=== PATIENT | female | born 1960 | race Caucasian/White ===

== ENCOUNTER 2016-06-21 18:50 | Emergency (ER) | payer MEDICAID ==
[2016-06-21 18:57] VITALS: BP 112/63
--- NOTE | 2016-06-21 19:04 | ER Document Report ---
ED Medical Screen (RME) - General Stated Complaint: FALL,HEAD AND HAND INJURY Time seen by provider: 19:04 Mode of Arrival: Ambulatory Information source: Patient Notes: 55-year-old female tripped on steps falling on concrete injuring the posterior occiput where she is a headache in injuring her dorsal right hand where it is swollen. She is having to headaches and dizziness since it occurred. I have consulted with the supervisory physician dr schmidt per [facility] Guidelines. I have greeted and performed a rapid initial assessment of this patient. A comprehensive ED assessment, evaluation of the patient, analysis of test results , and completion of the medical decision making process will be contacted by additional ED providers. TRAVEL OUTSIDE OF THE [place] IN LAST 30 DAYS: No - Related Data Allergies/Adverse Reactions: erythromycin base [Erythromycin Base] Allergy (Severe, Verified 09/17/15 08:39) Abd pain, Nausea tetracycline [Tetracycline] Allergy (Severe, Verified 09/17/15 08:39) Rash Penicillins Adverse Reaction (Unknown, Verified 09/17/15 08:39) ? childhood reaction Past Medical History - Past Medical History Cardiac Medical History: Denies: Hx Coronary Artery Disease, Hx Heart Attack, Hx Hypertension Pulmonary Medical History: Reports: Hx Asthma, Hx Bronchitis, Hx COPD, Hx Pneumonia - 6 months ago Neurological Medical History: Reports: Hx Migraine. Denies: Hx Cerebrovascular Accident, Hx Seizures GI Medical History: Reports: Hx Gastroesophageal Reflux Disease, Hx Irritable Bowel Musculoskeltal Medical History: Reports Hx Arthritis - Rheumatoid (all over), Reports Hx Fibromyalgia, Reports Hx Musculoskeletal Deformity, Reports Hx Musculoskeletal Trauma Psychiatric Medical History: Reports: Hx Anxiety, Hx Depression Traumatic Medical History: Reports: Hx Fractures Past Surgical History: Reports: Hx Section, Hx Gynecologic Surgery, Hx Hysterectomy, Hx Orthopedic Surgery, Hx Tubal Ligation - Immunizations Immunizations up to date: No Hx Diphtheria, Pertussis, Tetanus Vaccination: No Physical Exam - Vital signs Vitals: Temp Pulse Resp BP Pulse Ox 98.0 F 70 20 112/63 95 06/21/16 18:56 06/21/16 18:56 06/21/16 18:56 06/21/16 18:56 06/21/16 18:56 Course - Vital Signs Vital signs: Temp Pulse Resp BP Pulse Ox 98.0 F 70 20 112/63 95 06/21/16 18:56 06/21/16 18:56 06/21/16 18:56 06/21/16 18:56 06/21/16 18:56
[2016-06-21] MEDS ORDERED: MELOXICAM 15 MG TABLET PO ONE (20:19)
--- NOTE | 2016-06-21 20:33 | ER Document Report ---
HPI - HPI Patient complains to provider of: fall Pain Level: 4 Context: patient reports mechanical fall 1.5 days ago tripping on her porch, hit her head. -loc, but reports headache and nausea after it happened. since resolved. not on blood thinners. also c/o right hand pain bc she tried to catch herself, pain over 3rd metacarpal PMH: COPD, OA PCP: candy - CONSTITUTIONAL Constitutional: DENIES: Fever, Chills - EENT EENT: DENIES: Sore Throat, Ear Pain, Nasal Drainage-Clear, Nasal Drainage- Purulent, Congestion, Eye problems - NEURO Neurology: REPORTS: Headache, Weakness. DENIES: Vision blurred, Dizzinesss / Vertigo - CARDIOVASCULAR Cardiovascular: DENIES: Chest pain - RESPIRATORY Respiratory: REPORTS: Coughing - hx of smoking 1 ppd. DENIES: Trouble Breathing - GASTROINTESTINAL Gastrointestinal: DENIES: Abdominal Pain, Nausea, Patient vomiting, Diarrhea, Constipation, Black / Bloody Stools - URINARY Urinary: DENIES: Dysuria, Urgency, Frequency - MUSCULOSKELETAL Musculoskeletal: REPORTS: Extremity pain - R hand. DENIES: Back Pain, Neck Pain , Swelling - DERM Skin Color: [place], Ecchymosis Skin Problems: Bruise - NURSING COMMENTS Comment: pt reports she fell of her porch earlier today and hit her R hand and the back of her head. denies LOC, but reports BRAUN. R hand around thumb area is bruised but pt is able to move all extremities. CSM intact. Past Medical History - General Information source: Patient - Social History Smoking Status: Current Every Day Smoker Cigarette use (# per day): Yes - 1 ppd Chew tobacco use (# tins/day): No Frequency of alcohol use: None Drug Abuse: None Family History: Reviewed & Not Pertinent Patient has suicidal ideation: No Patient has homicidal ideation: No - Past Medical History Cardiac Medical History: Denies: Hx Coronary Artery Disease, Hx Heart Attack, Hx Hypertension Pulmonary Medical History: Reports: Hx Asthma, Hx Bronchitis, Hx COPD, Hx Pneumonia - 6 months ago Neurological Medical History: Reports: Hx Migraine. Denies: Hx Cerebrovascular Accident, Hx Seizures Renal/ Medical History: Denies: Hx Peritoneal Dialysis GI Medical History: Reports: Hx Gastroesophageal Reflux Disease, Hx Irritable Bowel Musculoskeltal Medical History: Reports Hx Arthritis - Rheumatoid (all over), Reports Hx Fibromyalgia, Reports Hx Musculoskeletal Deformity, Reports Hx Musculoskeletal Trauma Psychiatric Medical History: Reports: Hx Anxiety, Hx Depression Traumatic Medical History: Reports: Hx Fractures Past Surgical History: Reports: Hx Section, Hx Gynecologic Surgery, Hx Hysterectomy, Hx Orthopedic Surgery, Hx Tubal Ligation - Immunizations Immunizations up to date: No Hx Diphtheria, Pertussis, Tetanus Vaccination: No Vertical Provider Document - CONSTITUTIONAL Agree With Documented VS: Yes Exam Limitations: No Limitations General Appearance: WD/WN, No Apparent Distress - INFECTION CONTROL TRAVEL OUTSIDE OF THE [place] IN LAST 30 DAYS: No - HEENT HEENT: Normal ENT Exam, Normocephalic Notes: evidence of superficial laceration that has healed well. mild tenderness to palpation but no obvious deformities - NECK Neck: Normal Inspection, Other - full ROM no pain to palp - RESPIRATORY O2 Sat by Pulse Oximetry: 95 - CARDIOVASCULAR Pulses: Normal: Radial Notes: capillary refill < 2 seconds in all UE digits - MUSCULOSKELETAL/EXTREMETIES Musculoskeletal/Extremeties: Tender - mid shaft 3rd metacarpal, Edema - back of right hand and fingers. - NEURO Level of Consciousness: Awake, Alert, Appropriate Motor/Sensory: No Motor Deficit, No Sensory Deficit - DERM Integumentary: Warm, Dry, No Rash. negative: Laceration Course - Re-evaluation Re-evalutation: 06/21/16 20:31 no evidence of fracture or hematoma on CT, no fracture on hand xray. d.c pt home wth abdulaziz wrap and f/u with ojebuoboh in 7 day sin no improvement in swelling - Vital Signs Vital signs: Temp Pulse Resp BP Pulse Ox 98.0 F 70 20 112/63 95 06/21/16 18:56 06/21/16 18:56 06/21/16 18:56 06/21/16 18:56 06/21/16 18:56 Discharge - Discharge Clinical Impression: Hand pain, right Condition: Good Disposition: HOME, SELF-CARE Instructions: Abdulaziz Wrap ([facility]), Ice & Elevation ([facility]) Additional Instructions: Concussion You have suffered a concussion -- a temporary loss of certain brain functions due to a mild brain injury. The recovery is usually rapid and complete. The temporary problems occurring with a concussion can include loss of consciousness, dizziness, nausea, vomiting, and confusion. Repeat concussions can cause brain damage. In the future, avoid activities that will cause a blow to your head. Wear a helmet for sports such as snowboarding, biking, or skating. It's important that someone be with you for the first 24 hours. During this time, do not exercise or drive a vehicle. Do not take any pain medication stronger than acetaminophen unless prescribed by the physician. Any significant changes should be reported immediately to the physician. Signs of a problem may include: (1) Mental confusion (2) Incoordination or staggering (3) Repeated or forceful vomiting (4) Clear or bloody drainage from ear, mouth, or nose (5) Severe headache, not relieved by acetaminophen or prescribed pain medication (6) Failure to improve in 24 hours Prescriptions: Meloxicam [Mobic 15 mg Tablet] 15 mg PO DAILY #30 tablet Forms: Smoking Cessation Education Referrals: BINH STUART MD [Primary Care Provider] - Follow up as needed
[2016-06-21] MEDS ORDERED: MELOXICAM 15 MG TABLET ONE (20:51)
== END 2016-06-21 21:01 | disposition home or self-care (01) ==
LOC: ER 18:50
DX: S60.011A Contusion of right thumb without damage to nail, initial encounter (principal); M79.641 Pain in right hand; R51 Headache; R11.0 Nausea; R53.1 Weakness; W19.XXXA Unspecified fall, initial encounter; F17.210 Nicotine dependence, cigarettes, uncomplicated; J44.9 Chronic obstructive pulmonary disease, unspecified; J45.909 Unspecified asthma, uncomplicated
CPT/HCPCS: 70450; 99284

== ENCOUNTER 2016-08-11 03:08 | Emergency (ER) | payer MEDICAID ==
[2016-08-11 03:24] VITALS: BP 138/95
[2016-08-11 05:14] LABS: APPEARANCE,URINE CLEAR; BILIRUBIN,URINE NEGATIVE (NEGATIVE); GLUCOSE, URINE NEGATIVE (NEGATIVE); KETONES,URINE NEGATIVE (NEGATIVE); LEUKOCYTE ESTERASE,URINE NEGATIVE (NEGATIVE); NITRITE,URINE NEGATIVE (NEGATIVE); PROTEIN,URINE NEGATIVE (NEGATIVE); URINE SPECIFIC GRAVITY 1.009; UROBILINOGEN,URINE NEGATIVE mg/dL (<2.0)
== END 2016-08-11 06:22 | disposition left against medical advice (07) ==
LOC: ER 03:08
DX: Z53.21 Procedure and treatment not carried out due to patient leaving prior to being seen by health care provider (principal)
CPT/HCPCS: 81001

== ENCOUNTER 2016-08-11 19:16 | Emergency (ER) | payer MEDICAID ==
[2016-08-11 19:34] VITALS: BP 118/72
--- NOTE | 2016-08-11 19:38 | ER Document Report ---
ED Medical Screen (RME) - General Stated Complaint: ANXIETY Time seen by provider: 19:37 Mode of Arrival: Ambulatory Information source: Patient Notes: 55-year-old female presents to ED for anxiety. She states she is out of her Klonopin and cannot get them filled until tomorrow and is having a hard time with her anxiety today I have greeted and performed a rapid initial assessment of this patient. A comprehensive ED assessment and evaluation of the patient, analysis of test results and completion of medical decision making process will be conducted by an additional ED providers. TRAVEL OUTSIDE OF THE [place] IN LAST 30 DAYS: No - Related Data Allergies/Adverse Reactions: erythromycin base [Erythromycin Base] Allergy (Severe, Verified 08/11/16 04:10) Abd pain, Nausea tetracycline [Tetracycline] Allergy (Severe, Verified 08/11/16 04:10) Rash Penicillins Adverse Reaction (Unknown, Verified 08/11/16 04:10) ? childhood reaction Past Medical History - Past Medical History Cardiac Medical History: Denies: Hx Coronary Artery Disease, Hx Heart Attack, Hx Hypertension Pulmonary Medical History: Reports: Hx Asthma, Hx Bronchitis, Hx COPD, Hx Pneumonia - 6 months ago Neurological Medical History: Reports: Hx Migraine. Denies: Hx Cerebrovascular Accident, Hx Seizures Renal/ Medical History: Denies: Hx Peritoneal Dialysis GI Medical History: Reports: Hx Gastroesophageal Reflux Disease, Hx Irritable Bowel Musculoskeltal Medical History: Reports Hx Arthritis - Rheumatoid (all over), Reports Hx Fibromyalgia, Reports Hx Musculoskeletal Deformity, Reports Hx Musculoskeletal Trauma Psychiatric Medical History: Reports: Hx Anxiety, Hx Depression Traumatic Medical History: Reports: Hx Fractures Past Surgical History: Reports: Hx Section, Hx Gynecologic Surgery, Hx Hysterectomy, Hx Orthopedic Surgery, Hx Tubal Ligation - Immunizations Immunizations up to date: No Hx Diphtheria, Pertussis, Tetanus Vaccination: No Physical Exam - Vital signs Vitals: Temp Pulse Resp BP Pulse Ox 99.0 F 71 16 118/72 96 08/11/16 19:32 08/11/16 19:32 08/11/16 19:32 08/11/16 19:32 08/11/16 19:32 Course - Vital Signs Vital signs: Temp Pulse Resp BP Pulse Ox 99.0 F 71 16 118/72 96 08/11/16 19:32 08/11/16 19:32 08/11/16 19:32 08/11/16 19:32 08/11/16 19:32
== END 2016-08-12 00:30 | disposition left against medical advice (07) ==
LOC: ER 19:16
DX: Z53.9 Procedure and treatment not carried out, unspecified reason (principal); F41.9 Anxiety disorder, unspecified; Z79.899 Other long term (current) drug therapy
CPT/HCPCS: 99281

== ENCOUNTER 2016-08-17 21:18 | Emergency (ER) | payer MEDICAID ==
[2016-08-17] MEDS ORDERED: IBUPROFEN 400 MG TABLET PO ONE (21:38)
--- NOTE | 2016-08-17 21:40 | ER Document Report ---
ED Medical Screen (RME) - General Stated Complaint: FACIAL SWELLING Mode of Arrival: Ambulatory Information source: Patient Notes: She presents to the emergency department via [facility] with left-sided cheek pain after trying to payne her cheek ines night. Reports tetanus up to date. Reports chills. Reports pain. Reports took 400mg motrin at 1700. Reports took gabapentin without relief of pain. Has hx of fibromyalgia. I have greeted and performed a rapid initial assessment of this patient. A comprehensive ED assessment and evaluation of the patient, analysis of test results and completion of the medical decision making process will be conducted by additional ED providers. TRAVEL OUTSIDE OF THE [place] IN LAST 30 DAYS: No - Related Data Allergies/Adverse Reactions: erythromycin base [Erythromycin Base] Allergy (Severe, Verified 08/11/16 04:10) Abd pain, Nausea tetracycline [Tetracycline] Allergy (Severe, Verified 08/11/16 04:10) Rash Past Medical History - Past Medical History Cardiac Medical History: Denies: Hx Coronary Artery Disease, Hx Heart Attack, Hx Hypertension Pulmonary Medical History: Reports: Hx Asthma, Hx Bronchitis, Hx COPD, Hx Pneumonia - 6 months ago Neurological Medical History: Reports: Hx Migraine. Denies: Hx Cerebrovascular Accident, Hx Seizures Renal/ Medical History: Denies: Hx Peritoneal Dialysis GI Medical History: Reports: Hx Gastroesophageal Reflux Disease, Hx Irritable Bowel Musculoskeltal Medical History: Reports Hx Arthritis - Rheumatoid (all over), Reports Hx Fibromyalgia, Reports Hx Musculoskeletal Deformity, Reports Hx Musculoskeletal Trauma Psychiatric Medical History: Reports: Hx Anxiety, Hx Depression Traumatic Medical History: Reports: Hx Fractures Past Surgical History: Reports: Hx Section, Hx Gynecologic Surgery, Hx Hysterectomy, Hx Orthopedic Surgery, Hx Tubal Ligation - Immunizations Immunizations up to date: No Hx Diphtheria, Pertussis, Tetanus Vaccination: No Physical Exam - Vital signs Vitals: Temp Pulse Resp BP Pulse Ox 98.8 F 86 16 140/86 H 97 08/17/16 21:33 08/17/16 21:33 08/17/16 21:33 08/17/16 21:33 08/17/16 21:33 Course - Vital Signs Vital signs: Temp Pulse Resp BP Pulse Ox 98.8 F 86 16 140/86 H 97 08/17/16 21:33 08/17/16 21:33 08/17/16 21:33 08/17/16 21:33 08/17/16 21:33
--- NOTE | 2016-08-17 22:57 | ER Document Report ---
ED Oral Problem - General Chief Complaint: Facial Swelling Stated Complaint: FACIAL SWELLING Mode of Arrival: Ambulatory Information source: Patient Notes: 55-year-old female presents to the emergency department complaining of left cheek pain and swelling. Patient reports 3 days ago pierced her left cheek and subsequently developed progressively increasing localized swelling and pain. Reports to the piercing gauge yesterday but symptoms have persisted. Reports associated chills with unmeasured temperature at home. Denies difficulty breathing or swallowing, nausea or vomiting. States last tetanus vaccination within the last 2 years. TRAVEL OUTSIDE OF THE [place] IN LAST 30 DAYS: No - HPI Patient complains to provider of: Swelling of face Onset: Gradual Quality of pain: Achy Severity: Moderate Pain Level: 3 Context: Other Swollen jaw/face: Mild Similar symptoms previously: No Recently seen / treated by doctor/dentist: No - Related Data Allergies/Adverse Reactions: erythromycin base [Erythromycin Base] Allergy (Severe, Verified 08/11/16 04:10) Abd pain, Nausea tetracycline [Tetracycline] Allergy (Severe, Verified 08/11/16 04:10) Rash Past Medical History - General Information source: Patient - Social History Smoking Status: Current Every Day Smoker Frequency of alcohol use: Rare Drug Abuse: None Lives with: Family Family History: Reviewed & Not Pertinent Patient has suicidal ideation: No Patient has homicidal ideation: No - Past Medical History Cardiac Medical History: Denies: Hx Coronary Artery Disease, Hx Heart Attack, Hx Hypertension Pulmonary Medical History: Reports: Hx Asthma, Hx Bronchitis, Hx COPD, Hx Pneumonia - 6 months ago Neurological Medical History: Reports: Hx Migraine. Denies: Hx Cerebrovascular Accident, Hx Seizures Renal/ Medical History: Denies: Hx Peritoneal Dialysis GI Medical History: Reports: Hx Gastroesophageal Reflux Disease, Hx Irritable Bowel Musculoskeltal Medical History: Reports Hx Arthritis - Rheumatoid (all over), Reports Hx Fibromyalgia, Reports Hx Musculoskeletal Deformity, Reports Hx Musculoskeletal Trauma Psychiatric Medical History: Reports: Hx Anxiety, Hx Depression Traumatic Medical History: Reports: Hx Fractures Past Surgical History: Reports: Hx Section, Hx Gynecologic Surgery, Hx Hysterectomy, Hx Orthopedic Surgery, Hx Tubal Ligation - Immunizations Hx Diphtheria, Pertussis, Tetanus Vaccination: Yes Review of Systems - Review of Systems Constitutional: No symptoms reported EENT: See HPI Cardiovascular: No symptoms reported Respiratory: No symptoms reported Gastrointestinal: No symptoms reported Genitourinary: No symptoms reported Female Genitourinary: No symptoms reported Musculoskeletal: No symptoms reported Skin: No symptoms reported Hematologic/Lymphatic: No symptoms reported Neurological/Psychological: No symptoms reported -: Yes All other systems reviewed and negative Physical Exam - Vital signs Vitals: Temp Pulse Resp BP Pulse Ox 98.8 F 86 16 140/86 H 97 08/17/16 21:33 08/17/16 21:33 08/17/16 21:33 08/17/16 21:33 08/17/16 21:33 - General General appearance: Appears well, Alert In distress: None - HEENT Head: Normocephalic, Atraumatic Eyes: Normal Conjunctiva: Normal Eyelashes: Normal Pupils: PERRL Nerve palsy: No Ears: Normal External canal: Normal Tympanic membrane: Normal Sinus: Normal Nasal: Normal Mouth/Lips: Other - mild swelling to left lateral mid cheek surrounding puncture wound from piercing. mild localized erythema on inner/oral aspect. no drainage, fluctuance, or warmth. swelling not involving eye, ear, sinus or oral structures. Mucous membranes: Normal, Moist Pharynx: Normal. No: Blood in hypopharynx, Erythema, Exudate, Peritonsillar abscess, Post nasal drainage, Retropharyngeal abscess, Tonsillar hypertrophy, Uvular edema, Potential airway comprom., Other Neck: Normal. No: Anterior cervical chain, Posterior cervical chain, Lymphadenopathy, Meningismus, Subcutaneous emphysema - Respiratory Respiratory status: No respiratory distress Chest status: Nontender Breath sounds: Normal Chest palpation: Normal - Cardiovascular Rhythm: Regular Heart sounds: Normal auscultation Pulses: Normal: Radial Normal capillary refill: Yes - Neurological Neuro grossly intact: Yes Cognition: Normal Orientation: AAOx4 [place] Coma Scale Eye Opening: Spontaneous [place] Coma Scale Verbal: Oriented [place] Coma Scale Motor: Obeys Commands [place] Coma Scale Total: 15 Speech: Normal Cranial nerves: Normal. No: Facial palsy Motor strength normal: LUE, RUE, LLE, RLE Sensory: Normal - Skin Skin Temperature: Warm Skin Moisture: Dry Skin Color: Normal Course - Re-evaluation Re-evalutation: 08/17/16 23:04 Patient hemodynamically stable, in no distress, afebrile. Tolerating oral fluids without difficulty or vomiting. No trismus, abscess, or suggestion of significant deep space or soft tissue infection at this time. Will prescribe course of clindamycin for likely early localized infection at this time. Patient appears stable for discharge and agrees with home care, follow-up with PCP, ED return precautions. - Vital Signs Vital signs: Temp Pulse Resp BP Pulse Ox 98.8 F 86 16 140/86 H 97 08/17/16 21:33 08/17/16 21:33 08/17/16 21:33 08/17/16 21:33 08/17/16 21:33 Discharge - Discharge Clinical Impression: Facial infection Puncture wound of cheek, left, complicated Qualifiers: Encounter type: initial encounter Qualified Code(s): S01.432A - Puncture wound without foreign body of left cheek and temporomandibular area, initial encounter Condition: Stable Disposition: HOME, SELF-CARE Instructions: Cellulitis ([facility]), Clindamycin ([facility]), Anti-Inflammatory Medication ([facility]) Additional Instructions: Follow-up with your primary care provider in the next 24-48 hrs as discussed. Return to the Emergency Department for any worsening symptoms or concerns. Prescriptions: Clindamycin HCl 300 mg PO Q6H #28 capsule Naproxen 500 mg PO BIDP PRN #10 tablet PRN Reason: Forms: Elevated Blood Pressure Referrals: BINH STUART MD [ACTIVE STAFF] - Follow up tomorrow
[2016-08-17] MEDS ORDERED: CLINDAMYCIN HCL 150 MG CAPSULE PO ONE (22:59)
[2016-08-17 23:58] VITALS: BP 130/79
== END 2016-08-17 23:25 | disposition home or self-care (01) ==
LOC: ER 21:18
DX: S01.432A Puncture wound without foreign body of left cheek and temporomandibular area, initial encounter (principal); L08.9 Local infection of the skin and subcutaneous tissue, unspecified; X58.XXXA Exposure to other specified factors, initial encounter; F17.200 Nicotine dependence, unspecified, uncomplicated; J44.9 Chronic obstructive pulmonary disease, unspecified; R68.83 Chills (without fever); Z88.1 Allergy status to other antibiotic agents
CPT/HCPCS: 99283; J3490 ×2

== ENCOUNTER 2016-09-13 22:10 | Emergency (ER) | payer MEDICAID, OTHER ==
[2016-09-13 22:17] VITALS: BP 142/89
[2016-09-13] MEDS ORDERED: IBUPROFEN 600 MG TABLET PO ONE (22:59)
--- NOTE | 2016-09-13 23:00 | ER Document Report ---
ED General - General Chief Complaint: Thumb Injury Stated Complaint: LEFT THUMB SWELLING Notes: Patient is a 55-year-old female with past medical history of alcohol and drug abuse who presents with concerns of a left thumb injury. States that she tripped and fell yesterday jamming her left thumb and the ground. States she did not have any significant pain so she went to bed when she woke up this morning there was significant swelling to the area and she was unable to remove a ring at the base of her thumb. The swelling progressed throughout the day prompting her to come to the emergency department. She does note a dull, constant throbbing pain to the left thumb. Nothing improves or worsens the pain. States that the sensation is slightly diminished on the ventral surface of the thumb but notes that she can continue to move the thumb. No history of similar injury in the past. She has not seen her primary care doctor regarding today's concerns. TRAVEL OUTSIDE OF THE [place] IN LAST 30 DAYS: No - Related Data Allergies/Adverse Reactions: erythromycin base [Erythromycin Base] Allergy (Severe, Verified 08/11/16 04:10) Abd pain, Nausea tetracycline [Tetracycline] Allergy (Severe, Verified 08/11/16 04:10) Rash Past Medical History - General Information source: Patient - Social History Smoking Status: Current Every Day Smoker Frequency of alcohol use: None Drug Abuse: None Lives with: Spouse/Significant other Family History: Reviewed & Not Pertinent Patient has suicidal ideation: No Patient has homicidal ideation: No - Past Medical History Cardiac Medical History: Denies: Hx Coronary Artery Disease, Hx Heart Attack, Hx Hypertension Pulmonary Medical History: Reports: Hx Asthma, Hx Bronchitis, Hx COPD, Hx Pneumonia - 6 months ago Neurological Medical History: Reports: Hx Migraine. Denies: Hx Cerebrovascular Accident, Hx Seizures Renal/ Medical History: Denies: Hx Peritoneal Dialysis GI Medical History: Reports: Hx Gastroesophageal Reflux Disease, Hx Irritable Bowel Musculoskeltal Medical History: Reports Hx Arthritis - Rheumatoid (all over), Reports Hx Fibromyalgia, Reports Hx Musculoskeletal Deformity, Reports Hx Musculoskeletal Trauma Psychiatric Medical History: Reports: Hx Anxiety, Hx Depression Traumatic Medical History: Reports: Hx Fractures Past Surgical History: Reports: Hx Section, Hx Gynecologic Surgery, Hx Hysterectomy, Hx Orthopedic Surgery, Hx Tubal Ligation - Immunizations Immunizations up to date: No Hx Diphtheria, Pertussis, Tetanus Vaccination: Yes Review of Systems - Review of Systems Notes: Constitutional: Negative for fever. Eyes: Negative for visual changes. ENT: Negative for facial injury Cardiovascular: Negative for chest injury. Respiratory: Negative for shortness of breath. Gastrointestinal: Negative for abdominal injury. Genitourinary: Negative for genital injury Musculoskeletal: Positive for left foot pain and left thumb pain Skin: Negative for laceration/abrasions. Neurological: Negative for head injury. Physical Exam - Vital signs Vitals: Temp Pulse Resp BP Pulse Ox 98.2 F 77 18 142/89 H 98 09/13/16 22:14 09/13/16 22:14 09/13/16 22:14 09/13/16 22:14 09/13/16 22:14 Interpretation: Normal Notes: PHYSICAL EXAMINATION: GENERAL: Well-appearing, well-nourished and in no acute distress. HEAD: Atraumatic, normocephalic. EYES: Pupils equal round and reactive to light, extraocular movements intact, sclera anicteric, conjunctiva are normal. ENT: nares patent, oropharynx clear without exudates. Moist mucous membranes. NECK: Normal range of motion, supple without lymphadenopathy LUNGS: Breath sounds clear to auscultation bilaterally and equal. No wheezes rales or rhonchi. HEART: Regular rate and rhythm without murmurs ABDOMEN: Soft, nontender, normoactive bowel sounds. No guarding, no rebound. No masses appreciated. EXTREMITIES: Patient has some swelling to the distal left thumb with a ring that is unable to be removed. She has good cap refill with return of color to less than one second. There is ecchymosis at the base of the ventral surface of the thumb where it meets the nailbed without any subungual hematoma. After ring removal, patient is able to complete full flexion extension at the PIP of the left thumb. Patient does also have some pain on palpation of her left fifth toe and left great toe. NEUROLOGICAL: No focal neurological deficits. Moves all extremities spontaneously and on command. PSYCH: Normal mood, normal affect. SKIN: Warm, Dry, normal turgor, no rashes or lesions noted. Course - Re-evaluation Re-evalutation: 09/13/16 23:00 Patient presents with a ring that was caught at the base of her left thumb with associated digit swelling after she fell and injured her thumb yesterday. The ring was cut off successfully with near complete relief of patient's pain immediately thereafter. She is also complaining of injuring her left foot although she has been able to ambulate since the injury. Will proceed with x- rays of the thumb and foot. If these are normal plan for discharge home with return precautions and follow-up recommendations 09/14/16 0100 X-rays do demonstrate small avulsion fractures of the left thumb as well as the great toe on the left as well as the fifth toe on the left. These are small chip fractures and do not require any acute splinting her nonweightbearing status. At this time will discharge with return precautions and follow-up recommendations. Verbal discharge instructions given a the bedside and opportunity for questions given. Medication warnings reviewed. Patient is in agreement with this plan and has verbalized understanding of return precautions and the need for primary care follow-up in the next 24-72 hours. - Vital Signs Vital signs: Temp Pulse Resp BP Pulse Ox 98.2 F 62 16 142/89 H 95 09/13/16 22:15 09/13/16 22:15 09/13/16 22:15 09/13/16 22:15 09/13/16 22:15 - Diagnostic Test Radiology reviewed: Image reviewed, Reports reviewed Radiology results interpreted by me: 09/14/16 00:16 Left thumb x-ray: No acute fracture Left foot x-ray: No acute fracture-dislocation Discharge - Discharge Clinical Impression: ring stuck on finger Injury of left thumb Qualifiers: Encounter type: initial encounter Qualified Code(s): S69.92XA - Unspecified injury of left wrist, hand and finger(s), initial encounter Injury of left foot Qualifiers: Encounter type: initial encounter Qualified Code(s): S99.922A - Unspecified injury of left foot, initial encounter Fall Qualifiers: Encounter type: initial encounter Qualified Code(s): W19.XXXA - Unspecified fall, initial encounter Condition: Good Disposition: HOME, SELF-CARE Additional Instructions: Your xray does show some small chip fractures of your thumb and two of your toes. These will heal well over the next several weeks. You should continue to take anti-inflammatories such as ibuprofen 600 mg every 6 hours. Continue to apply ice to the area is much your able. Please follow-up with your primary care physician if you do not have improving your symptoms in the next 1-2 weeks. Please return immediately if you develop weakness, numbness, spreading redness from the area, or any other symptoms that are concerning to you. Referrals: BINH STUART MD [Primary Care Provider] - Follow up as needed
== END 2016-09-14 00:40 | disposition home or self-care (01) ==
LOC: ER 22:10
DX: S69.92XA Unspecified injury of left wrist, hand and finger(s), initial encounter (principal); S99.922A Unspecified injury of left foot, initial encounter; M79.89 Other specified soft tissue disorders; F10.10 Alcohol abuse, uncomplicated; F19.10 Other psychoactive substance abuse, uncomplicated; F17.200 Nicotine dependence, unspecified, uncomplicated; W19.XXXA Unspecified fall, initial encounter
CPT/HCPCS: 99283; 73140; 73630; J3490

== ENCOUNTER 2016-09-16 20:06 | Emergency (ER) | payer MEDICAID ==
[2016-09-16 20:21] VITALS: BP 139/99
== END 2016-09-17 01:10 | disposition left against medical advice (07) ==
LOC: ER 20:06
DX: Z53.21 Procedure and treatment not carried out due to patient leaving prior to being seen by health care provider (principal)

== ENCOUNTER 2016-09-22 15:33 | Emergency (ER) | payer MEDICAID ==
[2016-09-22 16:05] VITALS: BP 146/85
== END 2016-09-22 18:56 | disposition left against medical advice (07) ==
LOC: ER 15:33
DX: Z53.21 Procedure and treatment not carried out due to patient leaving prior to being seen by health care provider (principal)

== ENCOUNTER 2016-09-22 22:26 | Emergency (ER) | payer MEDICAID ==
[2016-09-22 23:02] VITALS: BP 144/78
[2016-09-23] MEDS ORDERED: IBUPROFEN 800 MG TABLET PO ONE (01:33)
[2016-09-23] MEDS ORDERED: KETOROLAC TROMETHAMINE 60 MG/2 ML SDV IM ONE (01:47)
--- NOTE | 2016-09-23 01:54 | ER Document Report ---
ED Hand/Wrist Injury - General Chief Complaint: Thumb pain L Stated Complaint: LEFT THUMB PAIN Mode of Arrival: Ambulatory Information source: Patient Notes: Patient is a 55-year-old female who presents to the ER today for continued pain in her left thumb after fracture was diagnosed on September 13. Patient states that she does not remember the injury but states that she thinks she fell while intoxicated at a green party. She comes today for continued pain and swelling in the thumb. She states she has been wearing the splint and has not been to orthopedics because she did not have a referral. She denies any worsening pain or swelling. She admits to some numbness and tingling to the thumb. TRAVEL OUTSIDE OF THE [place] IN LAST 30 DAYS: No - Related Data Allergies/Adverse Reactions: erythromycin base [Erythromycin Base] Allergy (Severe, Verified 09/22/16 16:02) Abd pain, Nausea tetracycline [Tetracycline] Allergy (Severe, Verified 09/22/16 16:02) Rash Past Medical History - General Information source: Patient - Social History Smoking Status: Unknown if Ever Smoked Family History: Reviewed & Not Pertinent - Past Medical History Cardiac Medical History: Denies: Hx Coronary Artery Disease, Hx Heart Attack, Hx Hypertension Pulmonary Medical History: Reports: Hx Asthma, Hx Bronchitis, Hx COPD, Hx Pneumonia - 6 months ago Neurological Medical History: Reports: Hx Migraine. Denies: Hx Cerebrovascular Accident, Hx Seizures Renal/ Medical History: Denies: Hx Peritoneal Dialysis GI Medical History: Reports: Hx Gastroesophageal Reflux Disease, Hx Irritable Bowel Musculoskeltal Medical History: Reports Hx Arthritis - Rheumatoid (all over), Reports Hx Fibromyalgia, Reports Hx Musculoskeletal Deformity, Reports Hx Musculoskeletal Trauma Psychiatric Medical History: Reports: Hx Anxiety, Hx Depression Traumatic Medical History: Reports: Hx Fractures Past Surgical History: Reports: Hx Section, Hx Gynecologic Surgery, Hx Hysterectomy, Hx Orthopedic Surgery, Hx Tubal Ligation - Immunizations Immunizations up to date: No Hx Diphtheria, Pertussis, Tetanus Vaccination: Yes Review of Systems - Review of Systems Constitutional: No symptoms reported EENT: No symptoms reported Cardiovascular: No symptoms reported Respiratory: No symptoms reported Gastrointestinal: No symptoms reported Genitourinary: No symptoms reported Female Genitourinary: No symptoms reported Musculoskeletal: See HPI Skin: See HPI Hematologic/Lymphatic: No symptoms reported Neurological/Psychological: No symptoms reported Physical Exam - Vital signs Vitals: Temp Pulse Resp BP Pulse Ox 99.9 F 89 18 144/78 H 96 09/22/16 23:01 09/22/16 23:01 09/22/16 23:01 09/22/16 23:01 09/22/16 23:01 - Notes Notes: PHYSICAL EXAMINATION: GENERAL: Mildly intoxicated, in no acute distress. HEAD: Atraumatic, normocephalic. EYES: Pupils equal round and reactive to light, extraocular movements intact, sclera anicteric, conjunctiva are glassy and erythematous NECK: Normal range of motion, supple without lymphadenopathy LUNGS: CTAB and equal. No wheezes rales or rhonchi. HEART: Regular rate and rhythm without murmurs EXTREMITIES: slight swelling to left dorsal 1st digit, tender to palpation dorsally, and over DIP joint, no ecchymoses, Normal range of motion, no pitting edema. No cyanosis. NEUROLOGICAL: Cranial nerves grossly intact. Normal sensory/motor exams. PSYCH: Normal mood, normal affect. SKIN: see extremities above Course - Re-evaluation Re-evalutation: 09/23/16 01:52 Patient was given x-ray from September 13 which does reveal a nondisplaced fracture of the distal phalanx. New splint was placed on patient's thumb and she was given information for Ortho - Vital Signs Vital signs: Temp Pulse Resp BP Pulse Ox 99.9 F 89 18 144/78 H 96 09/22/16 23:01 09/22/16 23:01 09/22/16 23:01 09/22/16 23:01 09/22/16 23:01 Discharge - Discharge Clinical Impression: Fracture of distal phalanx of left thumb Qualifiers: Encounter type: sequela Fracture type: closed Fracture alignment: nondisplaced Qualified Code(s): S62.525S - Nondisplaced fracture of distal phalanx of left thumb, sequela Condition: Stable Disposition: HOME, SELF-CARE Instructions: Fractured Thumb ([facility]) Additional Instructions: Please follow-up with orthopedics. Return immediately for any new or worsening symptoms. Follow up with primary care provider, call tomorrow to make followup appointment. Orthopedic Office [facility] [address] [place] [address] [place] [id number] phone: [phone] Referrals: BINH STUART MD [Primary Care Provider] - Follow up as needed
== END 2016-09-23 02:15 | disposition home or self-care (01) ==
LOC: ER 22:26
DX: S62.525D Nondisplaced fracture of distal phalanx of left thumb, subsequent encounter for fracture with routine healing (principal); X58.XXXD Exposure to other specified factors, subsequent encounter; J44.9 Chronic obstructive pulmonary disease, unspecified; Z88.1 Allergy status to other antibiotic agents
CPT/HCPCS: 99283; 96372; J1885

== ENCOUNTER 2017-01-09 20:15 | Emergency (ER) | payer MEDICAID ==
--- NOTE | 2017-01-09 20:40 | ER Document Report ---
HPI - HPI Notes: Patient is a 56-year-old female with a history of anxiety, bipolar, and stage IV COPD who presents the ED complaining of chest pain 2 days. Patient states that she has had chest pain all day constantly today that is described as a sharp and aching pain. Patient states that she also noticed chest tightness with increasing shortness of breath and anxiousness. Patient states that she also felt like her skin was crawling today. Patient states that prior to arrival her shortness of breath and chest tightness resolved. Patient states that she still has pain when she presses real hard on the left costochondral area. Patient states that she was still able to walk around in her house without any difficulties. Patient states that she is on oxygen at night. Patient states that she has noticed an increase in a productive cough and nasal discharge that is clear. Patient states that she is out of her clonidine and has not had any of her mental health medications. She is seen by [facility] and Dr. Stuart. Patient denies any history of OK, stroke, PE, DVTs, cancer. Denies any headache, fever, neck pain, changes in vision/speech/mentation/hearing, sore throat, dysphagia, palpitations, syncope, abdominal pain, nausea/vomiting/ diarrhea, urinary retention, dysuria, hematuria, numbness/tingling, muscle paralysis/weakness, or rash. - ROS Notes: REVIEW OF SYSTEMS: CONSTITUTIONAL : Denies fever, chills, or sweats. Denies recent illness. EENT: Denies eye, ear, throat, or mouth pain or symptoms. Denies throat, tongue, or mouth swelling or difficulty swallowing. CARDIOVASCULAR: see hpi RESPIRATORY: see hpi GASTROINTESTINAL: Denies abdominal pain or distention. Denies nausea, vomiting , or diarrhea. Denies blood in vomitus, stools, or per rectum. Denies black, tarry stools. Denies constipation. GENITOURINARY: Denies difficulty urinating, painful urination, burning, frequency, blood in urine, or discharge. MUSCULOSKELETAL: Denies back or neck pain or stiffness. Denies joint pain or swelling. SKIN: Denies rash, lesions or sores. NEUROLOGICAL: Denies confusion or altered mental status. Denies passing out or loss of consciousness. Denies dizziness or lightheadedness. Denies headache. Denies weakness or paralysis or loss of use of either side. Denies problems with gait or speech. Denies sensory loss, numbness, or tingling. Denies seizures. PSYCHIATRIC: see hpi. No SI/HI. ALL OTHER SYSTEMS REVIEWED AND NEGATIVE. Dictation was performed using [employer] voice recognition software Past Medical History - Social History Smoking Status: Unknown if Ever Smoked Family History: Reviewed & Not Pertinent - Past Medical History Cardiac Medical History: Denies: Hx Coronary Artery Disease, Hx Heart Attack, Hx Hypertension Pulmonary Medical History: Reports: Hx Asthma, Hx Bronchitis, Hx COPD, Hx Pneumonia - 6 months ago Neurological Medical History: Reports: Hx Migraine. Denies: Hx Cerebrovascular Accident, Hx Seizures Renal/ Medical History: Denies: Hx Peritoneal Dialysis GI Medical History: Reports: Hx Gastroesophageal Reflux Disease, Hx Irritable Bowel Musculoskeltal Medical History: Reports Hx Arthritis - Rheumatoid (all over), Reports Hx Fibromyalgia, Reports Hx Musculoskeletal Deformity, Reports Hx Musculoskeletal Trauma Psychiatric Medical History: Reports: Hx Anxiety, Hx Depression Traumatic Medical History: Reports: Hx Fractures Past Surgical History: Reports: Hx Section, Hx Gynecologic Surgery, Hx Hysterectomy, Hx Orthopedic Surgery, Hx Tubal Ligation - Immunizations Immunizations up to date: No Hx Diphtheria, Pertussis, Tetanus Vaccination: Yes Vertical Provider Document - CONSTITUTIONAL Agree With Documented VS: Yes Notes: PHYSICAL EXAMINATION: GENERAL: Well-appearing, well-nourished and in no acute distress. HEAD: Atraumatic, normocephalic. EYES: Pupils equal round and reactive to light, extraocular movements intact, sclera anicteric, conjunctiva are normal. ENT: EAC clear b/l. TM's intact b/l without erythema, fluid, or perforation. Nares patent and without discharge. oropharynx clear without exudates. No tonsilar hypertrophy or erythema. Moist mucous membranes. No sinus tenderness. NECK: Normal range of motion, supple without lymphadenopathy. No rigidity/ meningismus. LUNGS: Breath sounds clear to auscultation bilaterally and equal. No wheezes rales or rhonchi. + prolonged expiration. HEART: Regular rate and rhythm without murmurs, rubs, gallops. ABDOMEN: Soft, nontender, nondistended abdomen. No guarding, no rebound. No masses appreciated. Normal bowel sounds present. No CVA tenderness bilaterally. Musculoskeletal: Ext b/l: FROM to passive/active. Strength 5+/5. Extremities: No cyanosis, clubbing, or edema b/l. Peripheral pulses 2+. Capillary refill less than 3 seconds. NEUROLOGICAL: MMSE intact. Cranial nerves grossly intact. Normal speech. Normal sensory, motor exams PSYCH: Normal mood, normal affect. SKIN: Warm, Dry, normal turgor, no rashes or lesions noted. - INFECTION CONTROL TRAVEL OUTSIDE OF THE [place] IN LAST 30 DAYS: No Course - Re-evaluation Re-evalutation: 01/09/17 22:41 Patient is an afebrile, well-hydrated, 56-year-old female who presents the ED with chest pain not otherwise specified, suspect correlation with anxiety and costochondritis. Vitals are stable. PE otherwise unremarkable. CBC, CMP, urinalysis, EKG, chest x-ray, cardiac enzymes were all unremarkable for acute pathology at this time. I did give the patient PO potassium chloride for her mildly low potassium. Patient has a heart score of 2. Patient states that she would like to go home. Low suspicion/risk for any ACS, PE, pneumothorax, dissection, pericarditis, sepsis, meningitis, or other systemic emergent condition at this time. Patient is aware that condition can change from initial presentation and she needs to monitor symptoms closely and seek medical attention if any acute changes. Recheck with your PCM in 2-3 days. Return to the ED with any worsening/concerning symptoms otherwise as reviewed in discharge. Patient is in agreement. - Laboratory Result Diagrams: 01/09/17 20:34 01/09/17 20:34 Discharge - Discharge Clinical Impression: Chest pain of unknown etiology Condition: Stable Disposition: HOME, SELF-CARE Instructions: Chest Pain of Unclear Cause ([facility]), Chest Wall Pain ([facility]) Additional Instructions: Maintain adequate fluid intake Take home medications as directed Monitor symptoms closely Tylenol/ibuprofen as needed Ice and warm packs may help Recheck with your PCM in 2-3 days Return to the ED with any worsening symptoms and/or development of fever, headache, chest pain, palpitations, syncope, shortness of breath, trouble breathing, abdominal pain, n/v/d, blood in stool/urine, or other worsening symptoms that are concerning to you. Referrals: BINH STUART MD [Primary Care Provider] - 01/12/17
[2017-01-09 20:49] VITALS: BP 107/67
[2017-01-09 20:52] LABS: ABSOLUTE LYMPHOCYTES (AUTO) 1.5 10^3/uL (0.5-4.7); ABSOLUTE MONOCYTES (AUTO) 0.3 10^3/uL (0.1-1.4); ABSOLUTE NEUT (AUTO) 4.9 10^3/uL (1.7-8.2); BASOPHILS % (AUTO) 0.5 % (0-2); EOSINOPHILS % (AUTO) 0.1 % (0-6); HEMOGLOBIN 12.8 g/dL (12.0-15.5); HGB HCT DIFFERENCE 1.4; LYMPHOCYTES % (AUTO) 21.7 % (13-45); MEAN CORPUSCULAR HEMOGLOBIN 31.3 pg (27.0-33.4); MEAN CORPUSCULAR HGB CONC 34.6 g/dL (32.0-36.0); MEAN CORPUSCULAR VOLUME 91 fl (80-97); MONOCYTES % (AUTO) 4.8 % (3-13); RED BLOOD COUNT 4.09 10^6/uL (3.72-5.28); RED CELL DISTRIBUTION WIDTH 13.1 % (11.5-14.0); SEGMENTED NEUTROPHILS % (AUTO) 72.9 % (42-78); WHITE BLOOD COUNT 6.8 10^3/uL (4.0-10.5)
[2017-01-09 21:06] LABS: ALANINE AMINOTRANSFERASE 28 U/L (9-52); ALBUMIN 3.9 g/dL (3.5-5.0); ALKALINE PHOSPHATASE 56 U/L (38-126); ANION GAP 11 (5-19); ASPARTATE AMINO TRANSFERASE 18 U/L (14-36); BILIRUBIN,DIRECT 0.3 mg/dL (0.0-0.4); BILIRUBIN,TOTAL 0.4 mg/dL (0.2-1.3); BLOOD UREA NITROGEN 8 mg/dL (7-20); CALCIUM 9.6 mg/dL (8.4-10.2); CARBON DIOXIDE 24 mmol/L (22-30); CHLORIDE 105 mmol/L (98-107); CREATINE KINASE 41 U/L (30-135); CREATININE RESULT 0.55 mg/dL (0.52-1.25); GLUCOSE 98 mg/dL (75-110); POTASSIUM 3.4 mmol/L (3.6-5.0); SODIUM 139.9 mmol/L (137-145); TOTAL PROTEIN 6.4 g/dL (6.3-8.2)
--- NOTE | 2017-01-09 21:21 | RADIOLOGY REPORT (SQ) ---
EXAM DESCRIPTION: CHEST SINGLE VIEW COMPLETED DATE/TIME: 01/09/2017 9:12 pm REASON FOR STUDY: cp COMPARISON: 02/29/2016 EXAM PARAMETERS: NUMBER OF VIEWS: One view. TECHNIQUE: Single frontal radiographic view of the chest acquired. RADIATION DOSE: NA LIMITATIONS: None. FINDINGS: LUNGS AND PLEURA: No acute opacities, masses or pneumothorax. No pleural effusion. MEDIASTINUM AND HILAR STRUCTURES: Stable. HEART AND VASCULAR STRUCTURES: Heart normal in size. Normal vasculature. BONES: No acute findings. HARDWARE: None in the chest. OTHER: No other significant finding. IMPRESSION: NO ACUTE RADIOGRAPHIC FINDING IN THE CHEST. TECHNICAL DOCUMENTATION: JOB ID: [id number]
[2017-01-09 21:25] LABS: CREATINE KINASE MB 0.86 ng/mL (<4.55)
[2017-01-09 21:26] LABS: TROPONIN I < 0.012 ng/mL
[2017-01-09 22:07] LABS: APPEARANCE,URINE CLEAR; BILIRUBIN,URINE NEGATIVE (NEGATIVE); GLUCOSE, URINE NEGATIVE (NEGATIVE); KETONES,URINE NEGATIVE (NEGATIVE); LEUKOCYTE ESTERASE,URINE NEGATIVE (NEGATIVE); NITRITE,URINE NEGATIVE (NEGATIVE); PROTEIN,URINE NEGATIVE (NEGATIVE); URINE SPECIFIC GRAVITY 1.009; UROBILINOGEN,URINE NEGATIVE mg/dL (<2.0)
[2017-01-09] MEDS ORDERED: POTASSIUM CHLORIDE 10 MEQ TABLET.SA PO ONE (22:21)
--- NOTE | 2017-01-10 07:38 | EKG REPORT ---
SEVERITY:- BORDERLINE ECG - SINUS RHYTHM BORDERLINE R WAVE PROGRESSION, ANTERIOR LEADS BORDERLINE T ABNORMALITIES, ANT-LAT LEADS : Confirmed by: Skinny Mcdaniel MD 10-Jan-2017 07:38:11
== END 2017-01-09 22:30 | disposition home or self-care (01) ==
LOC: ER 20:15
DX: R07.9 Chest pain, unspecified (principal); F41.9 Anxiety disorder, unspecified; F32.9 Major depressive disorder, single episode, unspecified
CPT/HCPCS: 36415; 71010; 80053; 81001; 82550; 82553; 84484; 85025; 93005; 93010; 99285

== ENCOUNTER 2017-03-12 20:14 | Emergency (ER) | payer MEDICAID ==
[2017-03-12] MEDS ORDERED: ONDANSETRON 4 MG TAB.RAPDIS PO ONE (21:45)
[2017-03-12] MEDS ORDERED: OXYCODONE-ACETAMINOPHEN 5-325 MG TABLET PO ONE (21:45)
--- NOTE | 2017-03-12 21:46 | RADIOLOGY REPORT (SQ) ---
EXAM DESCRIPTION: SHOULDER LEFT 2 OR MORE VIEWS COMPLETED DATE/TIME: 03/12/2017 9:35 pm REASON FOR STUDY: DIRECT BLOW COMPARISON: None. NUMBER OF VIEWS: Three views. TECHNIQUE: Internal rotation, external rotation, and Y view images acquired of the left shoulder. LIMITATIONS: None. FINDINGS: MINERALIZATION: Normal. BONES: No acute fracture or dislocation. No worrisome bone lesions. JOINTS: No dislocation. VISUALIZED LUNGS AND RIBS: No pneumothorax. Old healed rib fractures. SOFT TISSUES: No radiopaque foreign body. OTHER: No other significant finding. IMPRESSION: NEGATIVE STUDY OF THE LEFT SHOULDER. OLD HEALED LEFT RIB FRACTURES. NO RADIOGRAPHIC EV IDENCE OF ACUTE INJURY. TECHNICAL DOCUMENTATION: JOB ID: [id number] [employer]- All Rights Reserved
--- NOTE | 2017-03-12 21:51 | ER Document Report ---
HPI - HPI Patient complains to provider of: left shoulder pain Pain Level: 5 Context: Patient is a 56-year-old female that comes emergency department for chief complaint of left shoulder pain, she states that a hot dog toaster fell off of a dryer stacked above her head and landed sharply on her left shoulder area, she states that she had a sharp pain at the time and now she has a sharp throbbing pain over her left shoulder that shoots down to her left arm. She denies neck, back, head injury, she denies any other injuries. She denies difficulty breathing or chest pain. - CARDIOVASCULAR Cardiovascular: DENIES: Chest pain - DERM Skin Color: Normal Past Medical History - General Information source: Patient - Social History Smoking Status: Current Every Day Smoker Drug Abuse: None Lives with: Family Family History: Reviewed & Not Pertinent Patient has suicidal ideation: No Patient has homicidal ideation: No - Past Medical History Cardiac Medical History: Denies: Hx Coronary Artery Disease, Hx Heart Attack, Hx Hypertension Pulmonary Medical History: Reports: Hx Asthma, Hx Bronchitis, Hx COPD, Hx Pneumonia - 6 months ago Neurological Medical History: Reports: Hx Migraine. Denies: Hx Cerebrovascular Accident, Hx Seizures Renal/ Medical History: Denies: Hx Peritoneal Dialysis GI Medical History: Reports: Hx Gastroesophageal Reflux Disease, Hx Irritable Bowel Musculoskeltal Medical History: Reports Hx Arthritis - Rheumatoid (all over), Reports Hx Fibromyalgia, Reports Hx Musculoskeletal Deformity, Reports Hx Musculoskeletal Trauma Psychiatric Medical History: Reports: Hx Anxiety, Hx Depression Traumatic Medical History: Reports: Hx Fractures Past Surgical History: Reports: Hx Section, Hx Gynecologic Surgery, Hx Hysterectomy, Hx Orthopedic Surgery, Hx Tubal Ligation - Immunizations Immunizations up to date: No Hx Diphtheria, Pertussis, Tetanus Vaccination: Yes Vertical Provider Document - CONSTITUTIONAL General Appearance: Mild Distress - Patient appears uncomfortable and moves the left arm area with discomfort - INFECTION CONTROL TRAVEL OUTSIDE OF THE [place] IN LAST 30 DAYS: No - HEENT HEENT: Atraumatic, Normal ENT Exam, Normocephalic - NECK Neck: Normal Inspection - RESPIRATORY Respiratory: Breath Sounds Normal, No Respiratory Distress, Chest Non-Tender. negative: Rales, Rhonchi, Wheezing O2 Sat by Pulse Oximetry: 98 - CARDIOVASCULAR Cardiovascular: Regular Rate, Regular Rhythm - GI/ABDOMEN Gastrointestinal: Abdomen Soft, Abdomen Non-Tender - MUSCULOSKELETAL/EXTREMETIES Musculoskeletal/Extremeties: Tender - Tenderness over the left shoulder mainly at the supraspinatus, also slightly over the humeral head, normal clavicle, nontender cervical region, pain with abduction of the left arm, normal elbow, wrist, distal neurovascular exam. No swelling or ecchymosis noted. Course - Re-evaluation Re-evalutation: X-ray with no acute abnormalities. Patient with blunt soft tissue injury to the top of the left shoulder area, no evidence of spinal, headache, chest injury. Patient requesting a sling for comfort, discussed range of motion, treatment of the soft tissue injury, follow-up, return precautions, patient states understanding and agreement. - Vital Signs Vital signs: Temp Pulse Resp BP Pulse Ox 98.7 F 61 17 153/81 H 98 03/12/17 20:51 03/12/17 20:51 03/12/17 20:51 03/12/17 20:51 03/12/17 20:51 Procedures - Immobilization Left shoulder Pre-Proc Neuro Vasc Exam: Normal Immobilizer type: Sling Performed by: RN Post-Proc Neuro Vasc Exam: Normal Alignment checked and good: Yes Discharge - Discharge Clinical Impression: Injury of left shoulder Qualifiers: Encounter type: initial encounter Qualified Code(s): S49.92XA - Unspecified injury of left shoulder and upper arm, initial encounter Condition: Stable Disposition: HOME, SELF-CARE Additional Instructions: The x-ray shows old rib fractures but no abnormalities in regards to your shoulder or today's injury. No concerning findings on your examination other than soft tissue injury. Apply ice to the area, take the given medication tonight if needed, take [id number] anti-inflammatory medication. Wear the sling if desired for comfort but remember to take out and perform range of motion exercises with your shoulder to regain full range of motion and avoid a frozen shoulder. Follow-up with primary care. Return to the emergency department for any concerning symptoms. Forms: Return to Work Referrals: BINH STUART MD [Primary Care Provider] - Follow up as needed
[2017-03-12] MEDS ORDERED: HYDROCODONE/ACETAMINOPHEN 5-325 MG (6 TAB/ER DISP) PO PRN (22:29)
[2017-03-12 23:22] VITALS: BP 154/78
== END 2017-03-12 22:46 | disposition home or self-care (01) ==
LOC: ER 20:14
DX: S49.92XA Unspecified injury of left shoulder and upper arm, initial encounter (principal); M25.512 Pain in left shoulder; W20.8XXA Other cause of strike by thrown, projected or falling object, initial encounter; F17.200 Nicotine dependence, unspecified, uncomplicated
CPT/HCPCS: 99283; 73030; S0119

== ENCOUNTER 2017-07-08 23:19 | Emergency (ER) | payer MEDICAID ==
[2017-07-08 23:26] VITALS: BP 154/96
--- NOTE | 2017-07-09 00:50 | ER Document Report ---
ED General - General Chief Complaint: Jaw Pain Stated Complaint: JAW PAIN Time Seen by Provider: 07/09/17 00:17 Notes: Patient is a 56-year-old female with a past medical history of anxiety and depression who presents after she took Latuda and developed a dystonic reaction. Patient reports approximately 45 minutes after taking Latuda she developed severe jaw spasms worse on the left side. Patient reports a history of similar symptoms once in the past with Latuda but did not take this medication in quite some time so thought that she could take it safely. EMS was contacted, administered 50 mg of intravenous Benadryl with complete resolution of the patient's symptoms. Patient reports now her only symptom is a mild, throbbing pain to her left temporomandibular junction. Nothing improves or worsens that pain although she does note it is very mild. She denies any concerns of focal weakness, numbness, headache or confusion. TRAVEL OUTSIDE OF THE [place] IN LAST 30 DAYS: No - HPI Similar symptoms previously: Yes Recently seen / treated by doctor: No - Related Data Allergies/Adverse Reactions: erythromycin base [Erythromycin Base] Allergy (Severe, Verified 09/22/16 16:02) Abd pain, Nausea tetracycline [Tetracycline] Allergy (Severe, Verified 09/22/16 16:02) Rash Past Medical History - General Information source: Patient - Social History Smoking Status: Current Every Day Smoker Chew tobacco use (# tins/day): No Frequency of alcohol use: None Drug Abuse: None Lives with: Alone Family History: Reviewed & Not Pertinent Patient has suicidal ideation: No Patient has homicidal ideation: No - Past Medical History Cardiac Medical History: Denies: Hx Coronary Artery Disease, Hx Heart Attack, Hx Hypertension Pulmonary Medical History: Reports: Hx Asthma, Hx Bronchitis, Hx COPD, Hx Pneumonia - 6 months ago Neurological Medical History: Reports: Hx Migraine. Denies: Hx Cerebrovascular Accident, Hx Seizures Renal/ Medical History: Denies: Hx Peritoneal Dialysis GI Medical History: Reports: Hx Gastroesophageal Reflux Disease, Hx Irritable Bowel Musculoskeltal Medical History: Reports Hx Arthritis - Rheumatoid (all over), Reports Hx Fibromyalgia, Reports Hx Musculoskeletal Deformity, Reports Hx Musculoskeletal Trauma Psychiatric Medical History: Reports: Hx Anxiety, Hx Depression Traumatic Medical History: Reports: Hx Fractures Past Surgical History: Reports: Hx Section, Hx Gynecologic Surgery, Hx Hysterectomy, Hx Orthopedic Surgery, Hx Tubal Ligation - Immunizations Immunizations up to date: No Hx Diphtheria, Pertussis, Tetanus Vaccination: Yes Review of Systems - Review of Systems Notes: Constitutional: Negative for fever. HENT: Negative for sore throat. Eyes: Negative for visual changes. Cardiovascular: Negative for chest pain. Respiratory: Negative for shortness of breath. Gastrointestinal: Negative for abdominal pain, vomiting or diarrhea. Genitourinary: Negative for dysuria. Musculoskeletal: Positive for jaw pain Skin: Negative for rash. Neurological: Negative for headaches, weakness or numbness. 10 point ROS negative except as marked above and in HPI. Physical Exam - Vital signs Vitals: Temp Pulse Resp BP Pulse Ox 98.3 F 82 18 154/96 H 95 07/08/17 23:19 07/08/17 23:19 07/08/17 23:19 07/08/17 23:19 07/08/17 23:19 Interpretation: Normal Notes: PHYSICAL EXAMINATION: GENERAL: Well-appearing, well-nourished and in no acute distress. HEAD: Atraumatic, normocephalic. EYES: Pupils equal round and reactive to light, extraocular movements intact, sclera anicteric, conjunctiva are normal. ENT: nares patent, oropharynx clear without exudates. Moist mucous membranes. No trismus NECK: Normal range of motion, supple without lymphadenopathy LUNGS: Breath sounds clear to auscultation bilaterally and equal. No wheezes rales or rhonchi. HEART: Regular rate and rhythm without murmurs ABDOMEN: Soft, nontender, normoactive bowel sounds. No guarding, no rebound. No masses appreciated. EXTREMITIES: Normal range of motion, no pitting or edema. No cyanosis. NEUROLOGICAL: No focal neurological deficits. Moves all extremities spontaneously and on command. PSYCH: Moderately anxious SKIN: Warm, Dry, normal turgor, no rashes or lesions noted. Course - Re-evaluation Re-evalutation: 07/09/17 00:50 Patient presents after having a dystonic reaction which has since resolved after receiving 50 mg of intravenous Benadryl. She is otherwise a symptomatic, vitals normal limits and has no additional complaints. Stable for discharge home. At this time will discharge with return precautions and follow-up recommendations. Verbal discharge instructions given a the bedside and opportunity for questions given. Medication warnings reviewed. Patient is in agreement with this plan and has verbalized understanding of return precautions and the need for primary care follow-up in the next 24-72 hours. - Vital Signs Vital signs: Temp Pulse Resp BP Pulse Ox 98.3 F 82 18 154/96 H 95 07/08/17 23:19 07/08/17 23:19 07/08/17 23:19 07/08/17 23:19 07/08/17 23:19 Discharge - Discharge Clinical Impression: Dystonic drug reaction Condition: Good Disposition: HOME, SELF-CARE Additional Instructions: Please do not take Latuda again. Return for any additional concerns you may have. Referrals: BINH STUART MD [Primary Care Provider] - Follow up as needed
== END 2017-07-09 01:15 | disposition home or self-care (01) ==
LOC: ER 23:19
DX: G24.09 Other drug induced dystonia (principal); R68.84 Jaw pain; T43.505A Adverse effect of unspecified antipsychotics and neuroleptics, initial encounter; F17.200 Nicotine dependence, unspecified, uncomplicated; F41.9 Anxiety disorder, unspecified; F32.9 Major depressive disorder, single episode, unspecified; Z88.3 Allergy status to other anti-infective agents; Z90.710 Acquired absence of both cervix and uterus
CPT/HCPCS: 99283

== ENCOUNTER → 2017-12-29 | Outpatient (CLI) | payer MEDICAID ==
--- NOTE | 2017-12-29 15:12 | WOMENS IMAGING REPORT ---
EXAM DESCRIPTION: 3D SCREENING MAMMO BILAT COMPLETED DATE/TIME: 12/29/2017 2:49 pm REASON FOR STUDY: SCREENING MAMMO Z12.31 ENCNTR SCREEN MAMMOGRAM FOR MALIGNANT NEOPLASM OF [place] R04. 2 HEMOPTYSIS COMPARISON: 2009 TECHNIQUE: Standard craniocaudal and mediolateral oblique views of each breast recorded using digita l acquisition and breast tomosynthesis. LIMITATIONS: None. FINDINGS: No masses, calcifications or architectural distortion. No areas of suspicion. Read with the assistance of CAD. .[facility] - R2 Cenova Version 1.3 .[facility] - R2 Cenova Version 1.3 .[facility] - R2 Cenova Version 2.4 .[facility] [place] R2 Cenova Version 2.4 .[facility] - R2 Home [facility] Version 9.2 IMPRESSION: NORMAL MAMMOGRAM. BIRADS 1. BREAST DENSITY: b. There are scattered areas of fibroglandular density. BIRAD: 1 NEGATIVE RECOMMENDATION: ROUTINE SCREENING COMMENT: The patient has been notified of the results by letter per SA requirements. Additional no tification policies are in place for contacting patient with suspicious or incomplete findings. Quality ID #[id number]: The [employer] recommends an annual screening mammogram for women aged 40 years or over. This facility utilizes a reminder system to ensure that all patients receive reminder letters, and/or direct phone calls for appointments. This includes reminders for routine scr eening mammograms, diagnostic mammograms, or other Breast Imaging Interventions when appropriate. Th is patient will be placed in the appropriate reminder system. The [employer] (ACR) has developed recommendations for screening MRI of the breast s in certain patient populations, to be used in conjunction with mammography. Breast MRI surveillanc e may be appropriate for women with more than 20% lifetime risk of developing breast cancer as deter mined by genetic testing, significant family history of the disease, or history of mantle radiation f or Hodgkins Disease. ACR Practice Guidelines 2008. DBT Technology DBT is a type of tomographic mammography. With conventional mammography, overlapping breast tissue ma y make lesions difficult to detect, even with good compression. DBT uses an x-ray tube that rotates a round the breast, taking images at different angles. These images are then combined to create thin sl ices of the breast that the radiologist can view as a 3D reconstruction. The [employer] unit can perform full-field digital mammograms (2D imaging); or DBT (3D imaging); or both, in a combination mode that quickly performs both the mammogram and the tomosynthesis scan while the breast is still compressed. PQRS 6045F: Fluoroscopic imaging is not utilized for breast tomosynthesis. TECHNICAL DOCUMENTATION: FINDING NUMBER: (1) ASSESSMENT: (1) JOB ID: [id number] [employer]- All Rights Reserved Reading location - IP/workstation name: [email or web address]-2
--- NOTE | 2017-12-29 15:57 | RADIOLOGY REPORT (SQ) ---
EXAM DESCRIPTION: CTA CHEST COMPLETED DATE/TIME: 12/29/2017 1:55 pm REASON FOR STUDY: HEMOPTYSIS Z12.31 ENCNTR SCREEN MAMMOGRAM FOR MALIGNANT NEOPLASM OF [place] R04.2 HE MOPTYSIS COMPARISON: CT 01/30/2016 chest x-ray 01/09/2017 TECHNIQUE: CT scan of the chest performed using helical scanning technique with dynamic intravenous contrast injection. Images reviewed with lung, soft tissue and bone windows. Reconstructed coronal and sagittal MPR images reviewed. Additional 3 dimensional post-processing performed to develop Maximal Intensity Projection images (TN P). All images stored on PACS. All CT scanners at this facility use dose modulation, iterative reconstruction, and/or weight based d osing when appropriate to reduce radiation dose to as low as reasonably achievable (ALARA). [facility]: Dose Right [facility]: CareDose [facility]: Dose Right [facility]: Teradose 4D [facility]: [employer] CONTRAST TYPE AND DOSE: contrast/concentration: Isovue 370.00 mg/ml; Total Contrast Delivered: 58.0 ml; Total Saline Delivered: 102.0 ml Contrast bolus optimized for the pulmonary arteries. Not diagnostic for the aorta. RENAL FUNCTION: Creatinine 0.6 RADIATION DOSE: CT Rad equipment meets quality standard of care and radiation dose reduction techniq ues were employed. CTDIvol: 4.6 - 11.3 mGy. DLP: 182 mGy-cm. . LIMITATIONS: None. FINDINGS: LUNGS AND PLEURA: No masses, infiltrates, or pneumothorax. No pleural effusions or pleura l calcifications. AORTA AND GREAT VESSELS: Borderline aneurysm of the ascending aorta at 4 cm. HEART: There is a pericardial effusion measuring about 12 mm in depth. See image 72. No significant coronary artery calcifications. PULMONARY ARTERIES: No emboli visualized in the main pulmonary arteries or the segmental branches. HILAR AND MEDIASTINAL STRUCTURES: No identified masses or abnormal nodes. HARDWARE: None in the chest. UPPER ABDOMEN: No significant findings. Limited exam. THYROID AND OTHER SOFT TISSUES: No masses. No adenopathy. BONES: No osseous lesions are seen. 3D MIPS: Confirm above findings. OTHER: No other significant finding. IMPRESSION: 1. There is no evidence of pulmonary embolus. 2. There is a borderline aneurysm of the ascending aorta. 3. Pericardial effusion. COMMENT: Quality ID # [id number]: Final reports with documentation of one or more dose reduction techniques (e.g., Automated exposure control, adjustment of the mA and/or kV according to patient size, use of iterative reconstruction technique) TECHNICAL DOCUMENTATION: JOB ID: [id number] [employer]- All Rights Reserved Reading location - IP/workstation name: [email or web address]
== END ==
LOC: RAD 13:06
PROVIDERS: ATTEND Internal Medicine
DX: Z12.31 Encounter for screening mammogram for malignant neoplasm of breast (principal); R04.2 Hemoptysis; I31.3 Pericardial effusion (noninflammatory)
CPT/HCPCS: 71275; 77063; 77067; 82565

== ENCOUNTER 2018-05-31 21:34 | Emergency (ER) | payer MEDICAID ==
--- NOTE | 2018-05-31 23:28 | RADIOLOGY REPORT (SQ) ---
EXAM DESCRIPTION: XR FOOT 3 OR MORE VIEWS COMPLETED DATE/TME: 05/31/2018 23:02 CLINICAL HISTORY: 57 years, Female, pain COMPARISON: 09/13/2016 left foot NUMBER OF VIEWS: 3 TECHNIQUE: 3 view left foot LIMITATIONS: None. FINDINGS: Old healed fracture deformities of the first and fifth digits. Negative for acute fracture or dislocation. Tiny calcaneal spurs. IMPRESSION: No acute osseous abnormality. copyright 2010 [employer]- All Rights Reserved
[2018-06-01] MEDS ORDERED: KETOROLAC TROMETHAMINE INJ/PF 30 MG/1 ML SDV IM ONE (00:01)
--- NOTE | 2018-06-01 00:14 | ER Document Report ---
ED General - General Chief Complaint: Foot Pain Stated Complaint: LEFT HEEL PAIN Time Seen by Provider: 05/31/18 23:47 Notes: Patient is a 57-year-old female who presents with complaint of pain in her left heel. Patient says that she had fractured this a while back. She never went to the orthopedic doctor. She just kept herself in the splint that was given to her here. She said she continues to have intermittent severe pain in her left heel. It is worse when she bears weight. No fevers. Some localized swelling. No other complaints at this time. TRAVEL OUTSIDE OF THE [place] IN LAST 30 DAYS: No - Related Data Allergies/Adverse Reactions: erythromycin base [Erythromycin Base] Allergy (Severe, Verified 09/22/16 16:02) Abd pain, Nausea tetracycline [Tetracycline] Allergy (Severe, Verified 09/22/16 16:02) Rash Past Medical History - Social History Smoking Status: Current Every Day Smoker Chew tobacco use (# tins/day): No Frequency of alcohol use: None Drug Abuse: None Family History: Reviewed & Not Pertinent Patient has suicidal ideation: No Patient has homicidal ideation: No - Past Medical History Cardiac Medical History: Denies: Hx Coronary Artery Disease, Hx Heart Attack, Hx Hypertension Pulmonary Medical History: Reports: Hx Asthma, Hx Bronchitis, Hx COPD, Hx Pneumo kaye - 6 months ago Neurological Medical History: Reports: Hx Migraine. Denies: Hx Cerebrovascular Accident, Hx Seizures Renal/ Medical History: Denies: Hx Peritoneal Dialysis GI Medical History: Reports: Hx Gastroesophageal Reflux Disease, Hx Irritable Bowel Musculoskeletal Medical History: Reports Hx Arthritis - Rheumatoid (all over), Reports Hx Fibromyalgia, Reports Hx Musculoskeletal Deformity, Reports Hx Musculoskeletal Trauma Psychiatric Medical History: Reports: Hx Anxiety, Hx Depression Traumatic Medical History: Reports: Hx Fractures Past Surgical History: Reports: Hx Section, Hx Gynecologic Surgery, Hx Hysterectomy, Hx Orthopedic Surgery, Hx Tubal Ligation - Immunizations Immunizations up to date: No Hx Diphtheria, Pertussis, Tetanus Vaccination: Yes Review of Systems - Review of Systems Notes: My Normal Review Basic REVIEW OF SYSTEMS: CONSTITUTIONAL : Denies fever, chills, or sweats. Denies recent illness. MUSCULOSKELETAL: Pain into left heel. SKIN: Denies rash or skin lesions. NEUROLOGICAL: Denies sensory or motor loss. ALL OTHER SYSTEMS REVIEWED AND NEGATIVE. Physical Exam - Vital signs Vitals: Temp Pulse Resp BP Pulse Ox 98.7 F 62 20 146/83 H 96 05/31/18 21:58 05/31/18 21:58 05/31/18 21:58 05/31/18 21:58 05/31/18 21:58 - Notes Notes: General Appearance: Well nourished, alert, cooperative, no acute distress, moderate obvious discomfort. Vitals: reviewed, See vital signs table. Extremities: Patient has pain to palpation of the superior lateral aspect of the calcaneus. No pain palpation over the Achilles tendon. No pain over plantar fascia. Some swelling localized to right around the calcaneus. Skin: warm, dry, appropriate color, no rash Neuro: speech clear, oriented x 3, normal affect, responds appropriately to questions. Course - Re-evaluation Re-evalutation: 06/01/18 05:19 X-ray shows that patient has calcaneal spurs. She likely has pain due to them being placed in proper cast due to never followed up with orthopedics. I informed her that I will refer her to podiatry. They are a dose of Toradol here. I will prescribe her Toradol as well at home. Patient has no history of renal insufficiency. I encouraged her return to ER immediately if she has severe worsening pain, increasing swelling, she feels unwell. Patient currently does not have any signs of infection in regards to physical exam of her foot. Dictation of this chart was performed using voice recognition software; therefore, there may be some unintended grammatical errors. - Vital Signs Vital signs: Temp Pulse Resp BP Pulse Ox 98.7 F 62 20 142/88 H 97 06/01/18 00:31 05/31/18 21:58 06/01/18 00:31 06/01/18 00:31 06/01/18 00:31 Discharge - Discharge Clinical Impression: Heel pain Condition: Good Disposition: HOME, SELF-CARE Additional Instructions: Please call and follow up with the bar host for reevaluation and further treatment options in regards to your heel pain. I have provided the numbers to 2 different local podiatrists, Dr. Zhu and Dr. Rai. Please return to the ER immediately if you develop spreading redness in your foot, fevers, or feel unwell. Please use the crutches to limit weight bearing on your foot. Prescriptions: Ketorolac Tromethamine [Toradol 10 mg Tablet] 10 mg PO Q8HP PRN #12 tablet PRN Reason: Referrals: DEMARIO ZHU DPM [ACTIVE STAFF] - Follow up in 3-5 days JOSS RAI DPM [ACTIVE STAFF] - Follow up in 3-5 days
[2018-06-01 00:33] VITALS: BP 142/88
== END 2018-06-01 00:43 | disposition home or self-care (01) ==
LOC: ER 21:34
DX: M79.672 Pain in left foot (principal); M77.32 Calcaneal spur, left foot; F17.200 Nicotine dependence, unspecified, uncomplicated; Z97.10 Presence of artificial limb (complete) (partial), unspecified; Z88.3 Allergy status to other anti-infective agents
CPT/HCPCS: 99283; 96372; 73630; J1885

== ENCOUNTER 2019-01-08 12:51 | Emergency (ER) | payer MEDICAID ==
[2019-01-08 13:00] VITALS: BP 129/71
[2019-01-08] MEDS ORDERED: PENICILLIN V POTASSIUM 500 MG TABLET PO ONE (13:24)
[2019-01-08] MEDS ORDERED: OXYCODONE-ACETAMINOPHEN 5-325 MG TABLET PO ONE (13:24)
--- NOTE | 2019-01-08 13:26 | ER Document Report ---
HPI - HPI Patient complains to provider of: toothache Time Seen by Provider: 01/08/19 13:05 Onset: Other - 4 days Onset/Duration: Persistent Quality of pain: Sharp, Stabbing Pain Level: 5 Context: Patient presents complaining of lower dental pain for the past 4 days. Patient does have an upcoming appointment in 4 days. Patient denies any fever or facial swelling. Associated Symptoms: denies: Fever, Headache Exacerbated by: Denies Relieved by: Denies Similar symptoms previously: Yes Recently seen / treated by doctor: No - ROS ROS below otherwise negative: Yes Systems Reviewed and Negative: Yes All other systems reviewed and negative - CONSTITUTIONAL Constitutional: DENIES: Fever, Chills - EENT EENT: DENIES: Sore Throat, Ear Pain Notes: toothache - NEURO Neurology: DENIES: Headache, Weakness - GASTROINTESTINAL Gastrointestinal: DENIES: Nausea, Patient vomiting - DERM Skin Color: Normal Skin Problems: None Past Medical History - General Information source: Patient - Social History Smoking Status: Current Every Day Smoker Chew tobacco use (# tins/day): No Smoking Education Provided: Yes Frequency of alcohol use: None Drug Abuse: None Occupation: none Family History: Reviewed & Not Pertinent Patient has suicidal ideation: No Patient has homicidal ideation: No - Past Medical History Cardiac Medical History: Denies: Hx Coronary Artery Disease, Hx Heart Attack, Hx Hypertension Pulmonary Medical History: Reports: Hx Asthma, Hx Bronchitis, Hx COPD, Hx Pneumonia - 6 months ago Neurological Medical History: Reports: Hx Migraine. Denies: Hx Cerebrovascular Accident, Hx Seizures Renal/ Medical History: Denies: Hx Peritoneal Dialysis GI Medical History: Reports: Hx Gastroesophageal Reflux Disease, Hx Irritable Bowel Musculoskeletal Medical History: Reports Hx Arthritis - Rheumatoid (all over), Reports Hx Fibromyalgia, Reports Hx Musculoskeletal Deformity, Reports Hx Musculoskeletal Trauma Psychiatric Medical History: Reports: Hx Anxiety, Hx Bipolar Disorder, Hx Depression Traumatic Medical History: Reports: Hx Fractures Past Surgical History: Reports: Hx Section, Hx Gynecologic Surgery, Hx Hysterectomy, Hx Orthopedic Surgery - KNEE X 5, Hx Tubal Ligation - Immunizations Immunizations up to date: No Hx Diphtheria, Pertussis, Tetanus Vaccination: Yes Vertical Provider Document - CONSTITUTIONAL Agree With Documented VS: Yes Exam Limitations: No Limitations General Appearance: WD/WN, No Apparent Distress - INFECTION CONTROL TRAVEL OUTSIDE OF THE [place] IN LAST 30 DAYS: No - HEENT HEENT: Atraumatic, Normocephalic Mouth Diagram: 1 - Widespread decay, no abscess, no sublingual or submental swelling - NECK Neck: Normal Inspection, Supple. negative: Lymphadenopathy-Left, Lymphadenopathy-Right - RESPIRATORY Respiratory: Breath Sounds Normal, No Respiratory Distress - CARDIOVASCULAR Cardiovascular: Regular Rate, Regular Rhythm - MUSCULOSKELETAL/EXTREMETIES Musculoskeletal/Extremeties: MAEW - NEURO Level of Consciousness: Awake, Alert, Appropriate Motor/Sensory: No Motor Deficit - DERM Integumentary: Warm, Dry Course - Vital Signs Vital signs: Temp Pulse Resp BP Pulse Ox 98.8 F 65 18 129/71 H 96 01/08/19 12:58 01/08/19 12:58 01/08/19 12:58 01/08/19 12:58 01/08/19 12:58 Discharge - Discharge Clinical Impression: Toothache Condition: Stable Disposition: HOME, SELF-CARE Instructions: Oral Narcotic Medication ([facility]), Penicillin V K ([facility]), Toothache ([facility]) Additional Instructions: Return immediately for any new or worsening symptoms Followup with your dentist on Thursday as planned Prescriptions: Acetaminophen with Codeine [Tylenol #3 Tablet] 1 each PO Q6HP PRN #12 tablet PRN Reason: Penicillin V Potassium [Penicillin Vk 500 mg Tablet] 500 mg PO BID #20 tablet Forms: Smoking Cessation Education Referrals: BINH STUART MD [Primary Care Provider] - Follow up as needed
== END 2019-01-08 13:31 | disposition home or self-care (01) ==
LOC: ER 12:51
DX: K02.9 Dental caries, unspecified (principal); K08.89 Other specified disorders of teeth and supporting structures; F17.200 Nicotine dependence, unspecified, uncomplicated; J44.9 Chronic obstructive pulmonary disease, unspecified
CPT/HCPCS: 99282; J3490

== ENCOUNTER 2019-03-11 15:01 | Emergency (ER) | payer MEDICAID ==
[2019-03-11 15:24] VITALS: BP 147/92
--- NOTE | 2019-03-11 15:40 | ER Document Report ---
ED Medical Screen (RME) - General Chief Complaint: Nausea/Vomiting Stated Complaint: NAUSEA/VOMITING Time Seen by Provider: 03/11/19 15:39 Primary Care Provider: BINH STUART MD [Primary Care Provider] - Follow up as needed Mode of Arrival: Ambulatory Information source: Patient Notes: 58-year-old female presents to ED for complaint of nausea vomiting and diarrhea. She states that emesis is green and the poop is dark. She states this started yesterday. She states she felt like she had a fever yesterday she does not know she did not take her temperature. She denies any past medical history of anything. She is alert and oriented states she feels horrible. I have greeted and performed a rapid initial assessment of this patient. A comprehensive ED assessment and evaluation of the patient, analysis of test results and completion of medical decision making process will be conducted by an additional ED providers. TRAVEL OUTSIDE OF THE [place] IN LAST 30 DAYS: No - Related Data Allergies/Adverse Reactions: erythromycin base [Erythromycin Base] Allergy (Severe, Verified 01/08/19 12:52) Abd pain, Nausea tetracycline [Tetracycline] Allergy (Severe, Verified 01/08/19 12:52) Rash Past Medical History - Past Medical History Cardiac Medical History: Denies: Hx Coronary Artery Disease, Hx Heart Attack, Hx Hypertension Pulmonary Medical History: Reports: Hx Asthma, Hx Bronchitis, Hx COPD, Hx Pneumonia - 6 months ago Neurological Medical History: Reports: Hx Migraine. Denies: Hx Cerebrovascular Accident, Hx Seizures Renal/ Medical History: Denies: Hx Peritoneal Dialysis GI Medical History: Reports: Hx Gastroesophageal Reflux Disease, Hx Irritable Bowel Musculoskeltal Medical History: Reports Hx Arthritis - Rheumatoid (all over), Reports Hx Fibromyalgia, Reports Hx Musculoskeletal Deformity, Reports Hx Musculoskeletal Trauma Psychiatric Medical History: Reports: Hx Anxiety, Hx Bipolar Disorder, Hx Depression Traumatic Medical History: Reports: Hx Fractures Past Surgical History: Reports: Hx Section, Hx Gynecologic Surgery, Hx Hysterectomy, Hx Orthopedic Surgery - KNEE X 5, Hx Tubal Ligation - Immunizations Immunizations up to date: No Hx Diphtheria, Pertussis, Tetanus Vaccination: Yes Physical Exam - Vital signs Vitals: Temp Pulse Resp BP Pulse Ox 98.2 F 82 22 H 147/92 H 100 03/11/19 15:23 03/11/19 15:23 03/11/19 15:23 03/11/19 15:23 03/11/19 15:23 Course - Vital Signs Vital signs: Temp Pulse Resp BP Pulse Ox 98.2 F 82 22 H 147/92 H 100 03/11/19 15:23 03/11/19 15:23 03/11/19 15:23 03/11/19 15:23 03/11/19 15:23 Doctor's Discharge - Discharge Referrals: BINH STUART MD [Primary Care Provider] - Follow up as needed
[2019-03-11] MEDS ORDERED: ONDANSETRON 4 MG TAB.RAPDIS PO ONE (15:41)
[2019-03-11 17:01] LABS: APPEARANCE,URINE CLOUDY; BILIRUBIN,URINE NEGATIVE (NEGATIVE); COLOR,URINE DARK YELLOW; GLUCOSE, URINE NEGATIVE (NEGATIVE); KETONES,URINE 20 mg/dL (NEGATIVE); PROTEIN,URINE >=500 mg/dL (NEGATIVE); URINE SPECIFIC GRAVITY 1.028
[2019-03-11 18:25] LABS: ABSOLUTE LYMPHOCYTES (AUTO) 1.1 10^3/uL (0.5-4.7); ABSOLUTE MONOCYTES (AUTO) 0.5 10^3/uL (0.1-1.4); ABSOLUTE NEUT (AUTO) 8.3 10^3/uL (1.7-8.2); BASOPHILS % (AUTO) 0.2 % (0-2); HEMATOCRIT 49.1 % (36.0-47.0); LYMPHOCYTES % (AUTO) 10.9 % (13-45); MEAN CORPUSCULAR HEMOGLOBIN 30.9 pg (27.0-33.4); MEAN CORPUSCULAR HGB CONC 34.7 g/dL (32.0-36.0); MEAN CORPUSCULAR VOLUME 89 fl (80-97); MONOCYTES % (AUTO) 5.2 % (3-13); PLATELET COUNT 191 10^3/uL (150-450); RED CELL DISTRIBUTION WIDTH 12.3 % (11.5-14.0); SEGMENTED NEUTROPHILS % (AUTO) 83.7 % (42-78); TOTAL CELLS COUNTED % (AUTO) 100 %
[2019-03-11] MEDS ORDERED: NORMAL SALINE 1000 ML 1,000 ML IV ONE (18:33)
[2019-03-11] MEDS ORDERED: KETOROLAC TROMETHAMINE INJ/PF 30 MG/1 ML SDV IV ONE (18:33)
[2019-03-11] MEDS ORDERED: LORAZEPAM INJ 2 MG/1 ML VIAL IV ONE (18:33)
[2019-03-11] MEDS ORDERED: DIPHENHYDRAMINE HCL 50 MG/ML VIAL IV ONE (18:34)
--- NOTE | 2019-03-11 18:38 | ER Document Report ---
ED GI/ - General Chief Complaint: Nausea/Vomiting/Diarrhea Stated Complaint: NAUSEA/VOMITING Time Seen by Provider: 03/11/19 15:39 Primary Care Provider: [facility] [Provider Group] - Follow up as needed BINH STUART MD [Primary Care Provider] - Follow up as needed Mode of Arrival: Ambulatory Information source: Patient Notes: Patient presents complaining of nausea vomiting diarrhea that started yesterday. Patient denies any urinary symptoms. Patient also complains of right-sided abdominal pain. Patient denies any vaginal bleeding or discharge. TRAVEL OUTSIDE OF THE [place] IN LAST 30 DAYS: No - HPI Patient complains to provider of: Abdominal pain, Diarrhea, Vomiting. No: Onset: Yesterday Timing/Duration: Gradual Quality of pain: Achy Pain Level: 3 Location: RUQ Associated symptoms: Diarrhea, Nausea, Vomiting. denies: Blood in emesis, Blood in stool, Fever, Urinary hesitancy, Urinary frequency, Urinary retention, Urinary urgency Exacerbated by: Denies Relieved by: Denies Similar symptoms previously: No Recently seen / treated by doctor: No - Related Data Allergies/Adverse Reactions: erythromycin base [Erythromycin Base] Allergy (Severe, Verified 01/08/19 12:52) Abd pain, Nausea tetracycline [Tetracycline] Allergy (Severe, Verified 01/08/19 12:52) Rash Past Medical History - General Information source: Patient - Social History Smoking Status: Current Every Day Smoker Frequency of alcohol use: None Drug Abuse: None Lives with: Alone Family History: Reviewed & Not Pertinent Patient has suicidal ideation: No Patient has homicidal ideation: No - Past Medical History Cardiac Medical History: Denies: Hx Coronary Artery Disease, Hx Heart Attack, Hx Hypertension Pulmonary Medical History: Reports: Hx Asthma, Hx Bronchitis, Hx COPD, Hx Pneumonia - 6 months ago Neurological Medical History: Reports: Hx Migraine. Denies: Hx Cerebrovascular Accident, Hx Seizures Renal/ Medical History: Denies: Hx Peritoneal Dialysis GI Medical History: Reports: Hx Gastroesophageal Reflux Disease, Hx Irritable Bowel Musculoskeletal Medical History: Reports Hx Arthritis - Rheumatoid (all over), Reports Hx Fibromyalgia, Reports Hx Musculoskeletal Deformity, Reports Hx Musculoskeletal Trauma Psychiatric Medical History: Reports: Hx Anxiety, Hx Bipolar Disorder, Hx Depression Traumatic Medical History: Reports: Hx Fractures Past Surgical History: Reports: Hx Section, Hx Gynecologic Surgery, Hx Hysterectomy, Hx Orthopedic Surgery - KNEE X 5, Hx Tubal Ligation - Immunizations Immunizations up to date: No Hx Diphtheria, Pertussis, Tetanus Vaccination: Yes Review of Systems - Review of Systems Constitutional: No symptoms reported. denies: Fever EENT: No symptoms reported Cardiovascular: No symptoms reported Respiratory: No symptoms reported Gastrointestinal: Abdominal pain, Diarrhea, Nausea, Vomiting. denies: Poor appetite, Black stools, Rectal bleeding Genitourinary: No symptoms reported. denies: Dysuria Female Genitourinary: No symptoms reported Musculoskeletal: No symptoms reported Skin: No symptoms reported Hematologic/Lymphatic: No symptoms reported Neurological/Psychological: No symptoms reported Physical Exam - Vital signs Vitals: Temp Pulse Resp BP Pulse Ox 98.2 F 82 22 H 147/92 H 100 03/11/19 15:23 03/11/19 15:23 03/11/19 15:23 03/11/19 15:23 03/11/19 15:23 - General General appearance: Appears well, Alert, Anxious In distress: None - HEENT Head: Normocephalic, Atraumatic Eyes: Normal Conjunctiva: Normal Nasal: Normal Mouth/Lips: Normal Neck: Normal, Supple. No: Lymphadenopathy - Respiratory Respiratory status: No respiratory distress Chest status: Nontender Breath sounds: Normal. No: Rales, Rhonchi, Stridor, Wheezing Chest palpation: Normal - Cardiovascular Rhythm: Regular. No: Tachycardia Heart sounds: S1 appreciated, S2 appreciated Murmur: No - Abdominal Inspection: Normal Distension: No distension Bowel sounds: Normal Tenderness: Tender - right side abd pain. No: McBurney's point, Molina's sign Organomegaly: No organomegaly - Back Back: Normal, Nontender. No: CVA tenderness - Extremities General upper extremity: Normal inspection, Normal ROM General lower extremity: Normal inspection, Normal ROM - Neurological Neuro grossly intact: Yes Cognition: Normal Leidy Coma Scale Eye Opening: Spontaneous Delta Coma Scale Verbal: Oriented Delta Coma Scale Motor: Obeys Commands Delta Coma Scale Total: 15 - Psychological Associated symptoms: Normal affect, Normal mood - Skin Skin Temperature: Warm Skin Moisture: Dry Skin Color: Normal Course - Re-evaluation Re-evalutation: 03/11/19 19:45 Patient reports nausea is improved some at this time. IV fluids continue to infuse. Patient states pain seems to be to the lower pelvis at this time. 03/11/19 20:46 Patient now complaining of right lower pelvic tenderness. Consulted with Dr. Yo regarding patient presentation. Recommends consulting with radiologist to determine if they notice any cecum inflammation on the CT scan as the appendix was not able to be visualized. Attempted to consult with radiology staff. They are currently reading trauma films and will call back when available. Call also placed to surgeon Dr. Olivares who is currently in a case. Circulating nurse will relay the message. 03/11/19 21:[address] Cornejo who is radiologist secondary connector armature at this time regarding patient CT imaging. Inquired as to whether there were any inflammatory changes noted near the cecum. Radiologist states that he can see enough of the appendix that he feels it looks normal in appearance. No inflammatory changes, no appendicolith, no abscess, no findings worrisome for acute appendicitis. 03/12/19 Patient pulled IV out stating that she is ready to go. Patient states she has a ride here and she is feeling better after having IV fluids and nausea medication. Dr. Olivares advised of patient's request to be discharged at this time, as well as the conversation that I had with Dr. Cornejo regarding her CT imaging. - Vital Signs Vital signs: Temp Pulse Resp BP Pulse Ox 98.2 F 82 22 H 147/92 H 100 03/11/19 15:23 03/11/19 15:23 03/11/19 15:23 03/11/19 15:23 03/11/19 15:23 - Laboratory Result Diagrams: 03/11/19 18:04 03/11/19 18:04 Laboratory results interpreted by me: 03/11/19 03/11/19 03/11/19 16:06 18:04 18:04 RBC 5.50 H Hgb 17.0 H Hct 49.1 H Lymph % (Auto) 10.9 L Absolute Neuts (auto) 8.3 H Seg Neutrophils % 83.7 H Potassium 3.3 L Glucose 122 H Calcium 10.3 H AST 44 H Creatine Kinase 320 H Total Protein 8.6 H Albumin 5.1 H Lipase 353.4 H Urine Protein >=500 H Urine Ketones 20 H Urine Blood LARGE H Urine Urobilinogen 2.0 H 03/12/19 02:21 Labs- Entire Visit 03/11/19 03/11/19 03/11/19 16:06 18:04 18:04 WBC 10.0 RBC 5.50 H Hgb 17.0 H Hct 49.1 H MCV 89 MCH 30.9 MCHC 34.7 RDW 12.3 Plt Count 191 Lymph % (Auto) 10.9 L [place] % (Auto) 5.2 Eos % (Auto) 0.0 Baso % (Auto) 0.2 Absolute Neuts (auto) 8.3 H Absolute Lymphs (auto) 1.1 Absolute Monos (auto) 0.5 Absolute Eos (auto) 0.0 Absolute Basos (auto) 0.0 Seg Neutrophils % 83.7 H Sodium 137.4 Potassium 3.3 L Chloride 98 Carbon Dioxide 27 Anion Gap 12 BUN 20 Creatinine 0.62 Est GFR ( Amer) > 60 Est GFR (MDRD) Non-Af > 60 Glucose 122 H Calcium 10.3 H Magnesium Total Bilirubin 1.3 Direct Bilirubin 0.1 Neonat Total Bilirubin Not Reportable Neonat Direct Bilirubin Not Reportable Neonat Indirect Bili Not Reportable AST 44 H ALT 34 Alkaline Phosphatase 69 Creatine Kinase 320 H Total Protein 8.6 H Albumin 5.1 H Lipase 353.4 H Urine Color DARK YELLOW Urine Appearance CLOUDY Urine pH 6.0 Ur Specific [place] 1.028 Urine Protein >=500 H Urine Glucose (UA) NEGATIVE Urine Ketones 20 H Urine Blood LARGE H Urine Nitrite (Reflex) NEGATIVE Urine Bilirubin NEGATIVE Urine Urobilinogen 2.0 H Leukocyte Esterase Rfl NEGATIVE Urine RBC (Auto) >182 Urine WBC (Reflex) 18 Squamous Epi Cells Auto 3 Urine Mucus (Auto) MANY Urine Ascorbic Acid NEGATIVE 03/11/19 18:04 WBC RBC Hgb Hct MCV MCH MCHC RDW Plt Count Lymph % (Auto) [place] % (Auto) Eos % (Auto) Baso % (Auto) Absolute Neuts (auto) Absolute Lymphs (auto) Absolute Monos (auto) Absolute Eos (auto) Absolute Basos (auto) Seg Neutrophils % Sodium Potassium Chloride Carbon Dioxide Anion Gap BUN Creatinine Est GFR ( Amer) Est GFR (MDRD) Non-Af Glucose Calcium Magnesium 1.8 Total Bilirubin Direct Bilirubin Neonat Total Bilirubin Neonat Direct Bilirubin Neonat Indirect Bili AST ALT Alkaline Phosphatase Creatine Kinase Total Protein Albumin Lipase Urine Color Urine Appearance Urine pH Ur Specific [place] Urine Protein Urine Glucose (UA) Urine Ketones Urine Blood Urine Nitrite (Reflex) Urine Bilirubin Urine Urobilinogen Leukocyte Esterase Rfl Urine RBC (Auto) Urine WBC (Reflex) Squamous Epi Cells Auto Urine Mucus (Auto) Urine Ascorbic Acid - Diagnostic Test Radiology reviewed: Reports reviewed Discharge - Discharge Clinical Impression: Nausea vomiting and diarrhea Abdominal pain Qualifiers: Abdominal location: unspecified location Qualified Code(s): R10.9 - Unspecified abdominal pain Hematuria Qualifiers: Hematuria type: unspecified type Qualified Code(s): R31.9 - Hematuria, unspecified Condition: Stable Disposition: HOME, SELF-CARE Instructions: Abdominal Pain ([facility]), Diarrhea, Nonspecific ([facility]), Hematuria ([facility]), Intravenous (IV) Fluids ([facility]), Observation for Appendicitis ([facility]), Vomiting ([facility]) Additional Instructions: Return immediately for any new or worsening symptoms Followup with your primary care provider, call tomorrow to make a followup appointment Urine culture is pending, we will call you if you need any different treatment. He had a large amount of blood in your urine. You should follow-up with a urologist for further evaluation. We will place you on an antibiotic for possible infection at this time. Prescriptions: Cephalexin Monohydrate [Keflex 500 mg Capsule] 500 mg PO BID 5 Days capsule Ondansetron HCl [Zofran 4 mg Tablet] 1 - 2 tab PO Q6 PRN #15 tablet PRN Reason: Referrals: BINH STUART MD [Primary Care Provider] - Follow up as needed [facility] [[facility]] - Follow up as needed
[2019-03-11 18:44] LABS: ALBUMIN 5.1 g/dL (3.5-5.0); ALKALINE PHOSPHATASE 69 U/L (38-126); ANION GAP 12 (5-19); ASPARTATE AMINO TRANSFERASE 44 U/L (14-36); BILIRUBIN,DIRECT 0.1 mg/dL (0.0-0.4); BILIRUBIN,TOTAL 1.3 mg/dL (0.2-1.3); BLOOD UREA NITROGEN 20 mg/dL (7-20); CALCIUM 10.3 mg/dL (8.4-10.2); CARBON DIOXIDE 27 mmol/L (22-30); CHLORIDE 98 mmol/L (98-107); CREATINE KINASE 320 U/L (30-135); GLUCOSE 122 mg/dL (75-110); POTASSIUM 3.3 mmol/L (3.6-5.0); TOTAL PROTEIN 8.6 g/dL (6.3-8.2)
--- NOTE | 2019-03-11 19:07 | RADIOLOGY REPORT (SQ) ---
EXAM DESCRIPTION: CT ABD/PELVIS NO ORAL OR IV COMPLETED DATE/TIME: 03/11/2019 6:54 pm REASON FOR STUDY: R side abd pain, hematuria COMPARISON: 05/18/2012 TECHNIQUE: CT scan of the abdomen and pelvis performed without intravenous or oral contrast. Images reviewed with lung, soft tissue, and bone windows. Reconstructed coronal and sagittal MPR images revi ewed. All images stored on PACS. All CT scanners at this facility use dose modulation, iterative reconstruction, and/or weight based d osing when appropriate to reduce radiation dose to as low as reasonably achievable (ALARA). [facility]: Dose Right [facility]: CareDose [facility]: Dose Right [facility]: Teradose 4D [facility]: Smart Teralynk RADIATION DOSE: CT Rad equipment meets quality standard of care and radiation dose reduction techniq ues were employed. CTDIvol: 4.8 mGy. DLP: 243 mGy-cm.mGy. LIMITATIONS: Lack of oral or intravenous contrast. Paucity of intra- abdominal fat. FINDINGS: LOWER CHEST: No significant findings. No nodules or infiltrates. NON-CONTRASTED LIVER, SPLEEN, ADRENALS: Evaluation limited by lack of IV contrast. No identified sign ificant masses. PANCREAS: No masses. No peripancreatic inflammatory changes. GALLBLADDER: No identified stones by CT criteria. No inflammatory changes to suggest cholecystitis. RIGHT KIDNEY AND URETER: No suspicious masses. Assessment limited by lack of IV contrast. No signif icant calcifications. No hydronephrosis or hydroureter. LEFT KIDNEY AND URETER: No suspicious masses. Assessment limited by lack of IV contrast. No signifi cant calcifications. No hydronephrosis or hydroureter. AORTA AND RETROPERITONEUM: No aneurysm. No retroperitoneal masses or adenopathy. BOWEL AND PERITONEAL CAVITY: No obvious masses or inflammatory changes. No free fluid. APPENDIX: Not identified. PELVIS, BLADDER, AND ABDOMINAL WALL:No abnormal masses. No free fluid. Bladder normal. BONES: No significant findings. OTHER: No other significant finding. IMPRESSION: NO SIGNIFICANT OR ACUTE PROCESS IN THE ABDOMEN OR PELVIS. COMMENT: Quality ID # [id number]: Final reports with documentation of one or more dose reduction techniques (e.g., Automated exposure control, adjustment of the mA and/or kV according to patient size, use of iterative reconstruction technique) TECHNICAL DOCUMENTATION: JOB ID: [id number]- All Rights Reserved Reading location - IP/workstation name: [email or web address]
[2019-03-11] MEDS ORDERED: RINGERS SOLUTION,LACTATED 1,000 ML IV ONE (19:19)
[2019-03-11] MEDS ORDERED: POTASSIUM CHLORIDE 10 MEQ CAPSULE.ER PO ONE (19:20)
== END 2019-03-11 22:00 | disposition home or self-care (01) ==
LOC: ER 15:01
DX: R11.2 Nausea with vomiting, unspecified (principal); R19.7 Diarrhea, unspecified; R10.11 Right upper quadrant pain; R10.819 Abdominal tenderness, unspecified site; R31.9 Hematuria, unspecified; J44.9 Chronic obstructive pulmonary disease, unspecified; F17.200 Nicotine dependence, unspecified, uncomplicated; Z87.19 Personal history of other diseases of the digestive system; Z88.1 Allergy status to other antibiotic agents
CPT/HCPCS: 99284; 96361; 96374; 96375; 36415; 87086; 82550; 83690; 83735; 85025; 87088; 80053; 81001; 74176; J1200; S0119; J1885; J2060; J7030; J7120

== ENCOUNTER 2020-06-12 17:24 | Emergency (ER) | payer MEDICAID ==
[2020-06-12] MEDS ORDERED: LIDOCAINE 5% (700 MG) TRANSDERMAL ADH..PATCH TP ONE (18:08)
--- NOTE | 2020-06-12 18:14 | ER Document Report ---
HPI - HPI Time Seen by Provider: 06/12/20 18:01 Notes: 59-year-old female with stage IV COPD presents to the emergency room today with bilateral knee pain and swelling after she fell trying to get her cat 2 days ago. Denies any head trauma or change in level consciousness. Patient states her pain is 5 out of 5 without medications, she has tried [id number] ibuprofen is currently on Suboxone. Does not want any narcotics for pain. Patient states that she is using a cane to ambulate, she typically can bear full weight. Denies any other area of injury. Patient reports she has had surgery on her left knee with hardware that had taken out, no surgery on the right. Reports her right knee has the most pain. Denies fevers, chills, chest pain,palpitations, shortness of breath, dyspnea, nausea, vomiting, diarrhea, abdominal pain, hematuria, vision changes, speech changes, LH, dizziness, syncope, headaches, wheezing, ST, URI, neck pain, weakness, bowel or bladder dysfunction, saddle anesthesia, numbness or tingling in bilateral upper or lower extremities equally, muscle paralysis, weakness in bilateral upper or lower extremities equally or rash. Denies IV drug use. - REPRODUCTIVE Reproductive: DENIES: : Past Medical History - General Information source: Patient - Social History Smoking Status: Current Every Day Smoker Family History: Reviewed & Not Pertinent - Past Medical History Cardiac Medical History: Denies: Hx Coronary Artery Disease, Hx Heart Attack, Hx Hypertension Pulmonary Medical History: Reports: Hx Asthma, Hx Bronchitis, Hx COPD, Hx Pneumonia - 6 months ago Neurological Medical History: Reports: Hx Migraine. Denies: Hx Cerebrovascular Accident, Hx Seizures Renal/ Medical History: Denies: Hx Peritoneal Dialysis GI Medical History: Reports: Hx Gastroesophageal Reflux Disease, Hx Irritable Bowel Musculoskeletal Medical History: Reports Hx Arthritis - Rheumatoid (all over), Reports Hx Fibromyalgia, Reports Hx Musculoskeletal Deformity, Reports Hx Musculoskeletal Trauma Psychiatric Medical History: Reports: Hx Anxiety, Hx Bipolar Disorder, Hx Depression Traumatic Medical History: Reports: Hx Fractures Past Surgical History: Reports: Hx Section, Hx Gynecologic Surgery, Hx Hysterectomy, Hx Orthopedic Surgery - KNEE X 5, Hx Tubal Ligation - Immunizations Immunizations up to date: No Hx Diphtheria, Pertussis, Tetanus Vaccination: Yes Vertical Provider Document - CONSTITUTIONAL Agree With Documented VS: Yes Exam Limitations: No Limitations General Appearance: WD/WN Notes: MEDICATIONS: I agree with the patient medications as charted by the RN. ALLERGIES: I agree with the allergies as charted by the RN. PAST MEDICAL HISTORY/PAST SURGICAL HISTORY: Reviewed and agree as charted by RN. SOCIAL HISTORY: Reviewed and agree as charted by RN. FAMILY HISTORY: No significant familial comorbid conditions directly related to patient complaint EXAM: Reviewed vital signs as charted by RN. PHYSICAL EXAMINATION: reviewed vital signs by RN GENERAL: Well-appearing, well-nourished and in no acute distress. HEAD: Atraumatic, normocephalic. EYES: Pupils equal round and reactive to light, extraocular movements intact, conjunctiva are normal. ENT: Nares patent, oropharynx clear without exudates. Moist mucous membranes. NECK: Normal range of motion, supple without lymphadenopathy LUNGS: Breath sounds clear to auscultation bilaterally and equal. No wheezes rales or rhonchi. HEART: Regular rate and rhythm without murmurs ABDOMEN: Soft, nontender, nondistended abdomen. No guarding, no rebound. No masses appreciated. Female : deferred Musculoskeletal: Normal range of motion, no pitting or edema. No cyanosis. Right knee pain with palpation to lateral, medial aspect of knee with noted swelling. left knee without swelling, tenderness to anterior aspect of knee. negative giovanny's sign. anterior and posterior drawer test negative. noted pain with flexion/extension. Dtr + 2 in BLE. limited APROM due to pain in Right knee and normal sensory function to BLE equally. No open wounds. No induration or drainage. Strength 5 out of 5 bilaterally equally. Ankle examination normal. Squeeze test negative. Hip examination normal. Pulses + 2 bilaterally and equally.negative squeeze bilaterally and equally. NEUROLOGICAL: Cranial nerves grossly intact. Normal speech, normal gait. Normal sensory, motor exams PSYCH: Normal mood, normal affect. SKIN: Warm, Dry, normal turgor, no rashes or lesions noted. - INFECTION CONTROL TRAVEL OUTSIDE OF THE [place] IN LAST 30 DAYS: No Course - Re-evaluation Re-evalutation: 06/12/20 18:12 Afebrile, vital stable. In no distress. X-ray of bilateral knees show a right knee effusion, no fracture, foreign body noted. Discussed with patient that we will place her in an Abdulaziz bandage and a knee immobilizer. She did refuse crutches but she has a cane that she wants to use to ambulate. A lidocaine patch was placed on the knee for pain control. Patient does not want any narcotics due to her history of of Percocet abuse, she is currently on Suboxone. Patient was happy to hear that she can receive lidocaine patches as well as taking anti-inflammatories. She did call her doctor today, she does have a pending referral to the orthopedist tomorrow. I discussed with her that we will be giving her a referral to the recreational specialist today as well as giving her knee immobilizer. She declined crutches, states she would like to ambulate with her cane due to having an old shoulder injury. Advised her to apply heat 20 minutes on 20 minutes off several times a day. Keep elevated above the level of her heart. Patient verbalized understanding of this plan of care and agreed with plan of care. After performing a Medical Screening Examination, I estimate there is LOW risk for OPEN FRACTURE, COMPARTMENT SYNDROME, DEEP VENOUS THROMBOSIS, ACUTE TENDON RUPTURE, or NEUROVASCULAR INJURY thus I consider the discharge disposition reasonable. I have reevaluated this patient multiple times and no significant life threatening changes are noted. The patient and I have discussed the diagnosis and risks, and we agree with discharging home to closely follow-up with their primary doctor or the referral orthopedist with the understanding that symptoms and presentations can change. We also discussed returning to the Emergency Department immediately if new or worsening symptoms occur. We have discussed the symptoms which are most concerning (e.g., changing or worsening pain, numbness, weakness) that necessitate immediate return 06/12/20 19:06 - Laboratory Results Critical Laboratory Results Reviewed: No Critical Results - Radiology Results Critical Radiology Results Reviewed: No Critical Results Discharge - Discharge Clinical Impression: Right knee pain, Effusion, right knee Condition: Stable Disposition: HOME, SELF-CARE Instructions: Ice & Elevation ([facility]), Suspected Internal Knee Injury ([facility]), Knee Effusion ([facility]), Knee Immobilizing Splint ([facility]), Sprained Knee ([facility]) Additional Instructions: Your x-ray today showed any effusion of your knee, an Abdulaziz bandage has been placed as well as a knee immobilizer. Sometimes effusions do go down with compression, elevation, heat and sometimes you do need it drained by an recreational specialist. Please follow-up with the recreational specialist tomorrow for further evaluation. You were given a lidocaine patch tonight, a prescription has been sent to your pharmacy. You can alternate between Tylenol and ibuprofen for pain control. Please keep elevate above the level of your heart. If you have any worsening pain please return to the emergency room. Return immediately for any new or worsening symptoms. Follow up with primary care provider, call tomorrow to make followup appointment. Prescriptions: Ibuprofen [Ibu] 600 mg PO Q6HP PRN #20 tablet PRN Reason: Lidocaine/Menthol [Lidall 4%-1% Patch] 1 each TP TIDP PRN #20 adh..patch PRN Reason: Referrals: BINH STUART MD [Primary Care Provider] - Follow up as needed JORDIN KANG DO [ACTIVE STAFF] - Follow up tomorrow
--- NOTE | 2020-06-12 18:38 | RADIOLOGY REPORT (SQ) ---
EXAM DESCRIPTION: KNEE BILATERAL 1-2 VIEWS IMAGES COMPLETED DATE/TIME: 06/12/2020 6:30 pm REASON FOR STUDY: s/p fall x 3d ago, R>L pain w/ swelling COMPARISON: None. NUMBER OF VIEWS: Two views. TECHNIQUE: AP and lateral standing bilateral knees. LIMITATIONS: None. FINDINGS: AP and lateral images of the knees demonstrate a joint effusion on the right. The joint s paces are fairly well maintained bilaterally. No significant marginal osteophytes are present. IMPRESSION: Joint effusion in the right knee. Findings as described. TECHNICAL DOCUMENTATION: JOB ID: [id number] 2010 [employer]- All Rights Reserved Reading location - IP/workstation name: [email or web address]
[2020-06-12 19:14] VITALS: BP 154/76
== END 2020-06-12 19:00 | disposition home or self-care (01) ==
LOC: ER 17:24
DX: M25.561 Pain in right knee (principal); M25.461 Effusion, right knee; F17.200 Nicotine dependence, unspecified, uncomplicated; J44.9 Chronic obstructive pulmonary disease, unspecified; Z90.710 Acquired absence of both cervix and uterus; Z98.51 Tubal ligation status
CPT/HCPCS: 99283; 73560; J3490